=== PATIENT | male | born 1970 | race Asian ===

== ENCOUNTER 2021-05-04 14:22 | Inpatient (IN) | payer OTHER, SELFPAY ==
[2021-05-04] VITALS (7 sets, daily range): BP systolic 81–103; BP diastolic 31–68; PULSE 88–95; RESP 14–19; TEMP 36.1–36.5; O2SAT 97–100; BMI 32.8
--- NOTE | ~2021-05-04 | CT_ITS ---
EXAMINATION: CT chest abdomen pelvis wo con DATE: 05/04/2021 15:16 INDICATION: Hypotension. TECHNIQUE: Computed tomography (CT) of the chest, abdomen, and pelvis was performed without intraveno us contrast. Automated exposure control and iterative reconstruction technique were employed. The dos e-length product was 1367.60 mGy-cm. COMPARISON: None FINDINGS: CHEST CT: Mild subpleural atelectasis/scarring in the right lower lobe and mild discoid atelectasis at the ling linda. No pneumonia, pulmonary edema, pleural effusion or pneumothorax. Heart size is normal. Small valentin unt of atherosclerotic coronary artery calcification. No pericardial effusion. The blood pool is slig htly lower in attenuation than the myocardium which could be seen with anemia. Thoracic aorta is norm al in caliber. No periaortic stranding to suggest aortic injury. No pathologically enlarged thoracic lymphadenopathy. Mild bilateral gynecomastia. Mild thoracic spondylosis. ABDOMEN/PELVIS CT: 4.3 x 2.6 cm fluid attenuation lesion with lobular margins in the right hepatic lobe most consistent with a hepatic cyst or hemangioma. Gallbladder, spleen, pancreas and right adrenal gland are normal. 2.3 cm soft tissue density left adrenal nodule statistically most likely to represent an adenoma. Mil d scattered diverticulosis without adjacent inflammatory change to suggest diverticulitis. Small rand l and appendix are normal. Bladder is normal. No free intraperitoneal gas or fluid. No pathologically enlarged abdominal or pelvic lymphadenopathy. Abdominal aorta is normal in caliber with scattered sm all amount of atherosclerotic plaque but again with no periaortic stranding to suggest aortic injury. Moderate lower lumbar spondylosis. IMPRESSION: 1. No acute intrathoracic, abdominal or pelvic process.. Reviewed, dictated and finalized at location A.
--- NOTE | ~2021-05-04 | US_ITS ---
EXAMINATION: US renal BI DATE: 05/05/2021 11:19 INDICATION: Acute kidney injury TECHNIQUE: Multiple grayscale and Doppler ultrasound images of the kidneys were obtained. COMPARISON: 04/18/2011 FINDINGS: The right kidney measures 11.0 x 5.3 x 5.4 cm and contains cysts measuring up to 1.3 cm. Th e left kidney measures 11.8 x 6.1 x 4.8 cm and contains cysts measuring up to 1.9 cm. The kidneys dem onstrate normal parenchymal echogenicity. There is no hydronephrosis. The bladder is incompletely dis tended but unremarkable in appearance. IMPRESSION: 1. Cysts of the otherwise normal kidneys without hydronephrosis. Reviewed, dictated and finalized at location B.
--- NOTE | 2021-05-04 14:31 | ECG_ITS ---
Measurements Intervals [place] Rate: 84 P: 20 DC: 188 QRS: 46 QRSD: 102 T: 46 QT: 364 QTc: 432 Interpretive Statements SINUS RHYTHM BASELINE ARTIFACT- I, II, III, AVR, AVL, AVF NORMAL ECG Electronically Signed On 05-04-2021 15:16:32 CDT by Robert Sutherland D.O.
[2021-05-04 15:10] LABS: Estimated CRCL calculation 19 ml/min; Estimated Glomerular Filt Rate 12
[2021-05-04] MEDS: LACTATED RINGERS 1,000 ML 999 ML (15:15)
[2021-05-04 15:17] LABS: Basophils Percent Auto 0.4 % (0.2-1.2); Eosinophils Absolute Auto 0.1 K/mm3 (0-0.3); Eosinophils Percent Auto 0.8 % (0-4.4); Hemoglobin 9.7 g/dL (14.0-18.0); Immature Granulocyte Absolute 0.07 K/mm3 (0.00-0.031); Immature Granulocyte Percent A 0.6 % (0-0.5); Lymphocytes Absolute Auto 2.03 K/mm3 (0.9-3.2); Lymphocytes Percent Auto 18.7 % (18.3-44.2); Mean Corpuscular HGB Conc 34.6 g/dl (32-36); Mean Corpuscular Hemoglobin 32.9 pg (26-34); Mean Corpuscular Volume 94.9 fl (80-100); Mean Platelet Volume 10.8 fl (7.4-10.4); Monocytes Absolute Auto 0.9 K/mm3 (0.1-0.6); Monocytes Percent Auto 8.3 % (2.6-8.5); Neutrophils Absolute Auto 7.7 K/mm3 (1.3-6.7); Neutrophils Percent Auto 71.2 % (45.5-73.1); Platelet Count Result 325 k/mm3 (150-375); Red Blood Count 2.95 M/mm3 (4.6-6.20); White Blood Count 10.8 K/mm3 (4.5-10.0)
[2021-05-04 15:30] LABS: Magnesium 2.4 mg/dL (1.6-2.3)
[2021-05-04 15:34] LABS: D Dimer 0.31 ug/mL (<0.48)
[2021-05-04 15:42] LABS: Immature Reticulocyte Fraction 15.9 % (3.0-15.9); Reticulocyte Hemoglobin Conten 37.2 pg (28.2-35.7); Reticulocyte Percent 6.06 % (0.7-4.3); Reticulocytes Absolute 0.18 B/L (32.2-175.7)
[2021-05-04 15:42] LABS: NT Pro B Type Natriuretic Pept 211 pg/mL (5-100); Troponin I < 0.012 ng/mL (0.000-0.034)
[2021-05-04 15:50] LABS: Alanine Aminotransferase 109 U/L (4-50); Albumin Level 4.1 g/dL (3.5-5.1); Alkaline Phosphatase 59 U/L (38-126); Anion Gap 15 mmol/L (8-16); Aspartate Amino Transferase 62 U/L (17-59); Bilirubin,Total 0.5 mg/dL (0.2-1.3); Blood Urea Nitrogen 53 mg/dL (9-20); Carbon Dioxide 16 mmol/L (22-30); Chloride 98 mmol/L (98-107); Estimated CRCL calculation 21 ml/min; Estimated Glomerular Filt Rate 13; Glucose 546 mg/dL (65-110); Potassium 4.6 mmol/L (3.4-5.0); Sodium 129 mmol/L (137-145)
[2021-05-04] MEDS: LACTATED RINGERS 1,000 ML 999 ML IV CONT ×2 (16:01→16:40)
[2021-05-04 16:31] LABS: Device ROOM AIR; Fractional Inspired Oxygen 21 %; HCO3 VBG 16.4 mEq/l (24.0-30.0); PCO2 VBG 36.3 mmHg (42.0-48.0); PO2 VBG 34.4 mmHg (35.0-45.0); pH VBG 7.274 (7.300-7.400)
--- NOTE | 2021-05-04 16:34 | ED.RECABL ---
HPI - Recheck/Abnormal Lab/Rx General Chief Complaint: Recheck/Abnormal Lab/Rx Stated Complaint: low blood pressure Time Seen by Provider: 05/04/21 14:29 Source: patient Mode of arrival: ambulatory Limitations: no limitations History of Present Illness HPI narrative: 51-year-old male Referral low blood pressure Patient states he went to his new doctor's office for a follow-up appointment and blood pressure was low, 70/45 or so and he was sent to the ED Patient states that he had a history of CHF maybe 10 years ago and has been on stable medications ever since then which are all basically blood pressure medicines and diuretics, including at least Norvasc, lisinopril, furosemide, spironolactone He says for probably a week he has been lightheaded and dizzy when standing up but feels fine when he is lying down He has had some moderate upper back pain when in the sitting position aggravated by changes in position and relieved when supine He has not had a fever, no cough or shortness of breath, no chest pain otherwise, no abdominal pain no dark stools, no diarrhea, his p.o. intake is been adequate in his opinion Related Data Allergies Allergy/AdvReac Type Severity Reaction Status Date / Time No Known Allergies Allergy Unverified 01/01/15 09:20 Review of Systems Review of Systems: All systems reviewed & are unremarkable except as noted in HPI and below Constitutional: Constitutional: Reports no additional constitutional complaints, Denies chills, Reports fatigue, Denies fever(s), Denies headache(s) and Reports weakness Eyes: Eyes: Reports no additional eye complaints and Denies change in vision ENT: Denies headache(s) and Denies sore throat Cardiovascular: Cardiovascular: Denies chest pain and Denies dyspnea Respiratory: Respiratory: Denies cough and Denies dyspnea Gastrointestinal: Gastrointestinal: Denies abdominal pain, Denies diarrhea and Denies vomiting Comments: No melena Genitourinary: Genitourinary: Denies hematuria and Denies dysuria Musculoskeletal: Musculoskeletal: Denies deformity, Denies arthralgias, Denies joint swelling and Denies numbness Integumentary/Breasts: Skin/Breast: Denies rash and Denies wounds Neurologic: Reports dizziness, Denies headache(s), Denies focal weakness, Denies numbness and Reports weakness Psychiatric: Psychiatric: Reports no additional psychiatric complaints Endocrine: Endocrine: Reports no additional endocrine complaints and Reports as per HPI Hematologic/Lymphatic: Hematologic/Lymphatic: Reports no additional hematologic/lymphatic complaints Allergic/Immunologic: Allergic/Immunologic: Reports no additional allergic/immunologic complaints [facility] Past Medical History Medical History (Updated 05/04/21 @ 17:20 by Patric Ynacey MD) CHF (congestive heart failure) Family History Family History Father Patient's father is Hypertension Social History Social History Smoking status: Smoker, status unknown Alcohol intake: current Exam Const: General: cooperative, healthy appearing, no acute distress and alert Orientation/consciousness: patient oriented x3 (alert) HENMT: Head: normal to inspection, normocephalic and atraumatic Ears: external ears normal General nose exam: no epistaxis Eyes: EOM: EOMs intact bilaterally Other: Arguably has pale conjunctive Neck: Neck: normal visual inspection, supple and no JVD Chest: Chest palpation & inspection: no tenderness Resp: Effort & Inspection: normal respiratory effort and not labored Auscultation: clear to auscultation bilaterally, no rales, no rhonchi, no wheezes and other (BS =) Cardio: Rate: regular rate Rhythm: regular rhythm Heart sounds: no murmurs GI: GI Palp: Yes Soft to palpation and No Tenderness to palpation present (GI) Other: Soft, nontender, nondistended, normal bowel sounds, no guarding
[2021-05-04] MEDS: INSULIN HUMAN REGULAR (*BKC) 100 UNITS/ML IV PUSH (16:38)
[2021-05-04 16:50] LABS: Beta-Hydroxybutyrate/Acetoacetate 0.31 mmol/L (0.02-0.27)
[2021-05-04] MEDS: POTASSIUM CHLORIDE 20 MEQ PACKET (FOR LIQUID) PO (17:13)
[2021-05-04 17:31] LABS: Glucose Point of Care 368 mg/dl (65-105)
--- NOTE | 2021-05-04 19:13 | PM.IMHP ---
H&P: HPI History of Present Illness Date/Time: 05/04/21 19:13Clarke is a 51-year-old male patient who has a history of hypertension and congestive heart failure. The patient is known to have a global ejection fraction in the range of 30 percentile as listed on a consult report on 09/10/2011. the patient stated that his primary care doctor with Dr. jones and then had switched to Dr. guzman within retired. The patient stated that he was going back to Dr. zurita and was found to have a low blood pressure 70/45 and therefore was sent to the emergency room. The patient stated that he has not been taking any new medication. Nor the lost any weight or started a new exercise program. The patient stated that he has been feeling lightheaded and dizzy when he stands up but he is fine when he is lying down. The patient has no previous history of having diabetes. He does not recall any history of having any kidney disease however in the past he had a creatinine of 1.3. However today at 4.8. His blood sugar was 546. H&H is 9.7 and 28.0. Sodium 129. The patient has been on Lasix and spironolactone. 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 Patient has metabolic acidosis with anion gap of 15. Beta hydroxybutyrate acetoacetate was noted to be 0.31. The patient was given 2 bags of lactated Ringer's and his blood pressure was responsive to this. The patient was also given IV insulin. CT of the abdomen pelvis shows nothing acute intrathoracic, abdominal or pelvic process. The patient has not had any fever chills no shortness of breath. No chest pain. No abdominal pain. No diarrhea or decrease in oral intake. The patient is being admitted to inpatient services on the date of service of 05/04/2021. Chief Complaint: Dizziness Review of Systems Review of Systems: All systems reviewed & are unremarkable except as noted in HPI and below Constitutional: Constitutional: Reports as per HPI and Reports no additional constitutional complaints Eyes: Eyes: Reports as per HPI and Reports no additional eye complaints ENT: Reports system reviewed and no additional complaints, except as documented and Reports Normal hearing present Cardiovascular: Cardiovascular: Reports no additional cardiovascular complaints Respiratory: Respiratory: Reports no additional respiratory complaints and Reports no additional respiratory complaints Gastrointestinal: Gastrointestinal: Reports as per HPI and Reports no additional gastrointestinal complaints Musculoskeletal: Musculoskeletal: Reports no additional musculoskeletal complaints Integumentary/Breasts: Skin/Breast: Reports system reviewed and no additional complaints, except as docu and Reports as per HPI Neurologic: Reports system reviewed and no additional complaints, except as documented, Reports as per HPI and Reports Normal hearing present Psychiatric: Psychiatric: Reports no additional psychiatric complaints and Reports as per HPI Endocrine: Endocrine: Reports no additional endocrine complaints Hematologic/Lymphatic: Hematologic/Lymphatic: Reports no additional hematologic/lymphatic complaints Allergic/Immunologic: Allergic/Immunologic: Reports no additional allergic/immunologic complaints [facility] Past Medical History Medical History (Updated 05/04/21 @ 19:33 by Kalie Keys NP) Brain aneurysm CHF (congestive heart failure) Congestive heart failure DM2 (diabetes mellitus, type 2) Surgical History Surgical History (Updated 05/04/21 @ 19:33 by Kalie Keys NP) H/O brain surgery coil for brain aneurysm H/O cardiac catheterization S/P hernia repair Family History Family History (Updated 05/04/21 @ 19:36 by Kalie Keys NP) Father Patient's father is Hypertension Pancreatic cancer Mother Atrial fibrillation Hypertension Social History Social History (Updated 05/04/21 @ 19:40 by Kalie Keys NP) Social History: the patient l
--- NOTE | 2021-05-04 20:09 | ADMGEN ---
This patient, Gera Dumont, was admitted to IMU Room 200-01 at 1955. Patient/family oriented to hospital policies and general routines including ID bracelet, bed and alarms, visiting hours, pain management, procedures, bathroom and other care routines, personal items, smoking policy, room service/diet, and visiting hours. Information on how to activate the Rapid Response Team has been discussed. Patient/Family are encouraged to report perceived risks to care and to ask questions if they do not understand what they are told or what they should do.
[2021-05-04 20:39] LABS: Glucose Point of Care 294 mg/dl (65-105)
[2021-05-04] MEDS: INSULIN GLARGINE (*BKC) 100 UNITS/ML 16 UNITS SUB-Q (21:54)
[2021-05-04] MEDS: HEPARIN SODIUM 5,000 UNITS/ML VIAL 5000 UNITS SUB-Q (21:54)
[2021-05-04 23:00] LABS: Anion Gap 12 mmol/L (8-16); Blood Urea Nitrogen 46 mg/dL (9-20); Carbon Dioxide 17 mmol/L (22-30); Chloride 104 mmol/L (98-107); Estimated CRCL calculation 26 ml/min; Estimated Glomerular Filt Rate 17; Glucose 292 mg/dL (65-110); Potassium 4.4 mmol/L (3.4-5.0); Sodium 133 mmol/L (137-145)
[2021-05-05] VITALS (21 sets, daily range): BP systolic 58–97; BP diastolic 22–60; PULSE 84–113; RESP 16–22; TEMP 35.8–37.1; O2SAT 94–99
--- NOTE | 2021-05-05 | ECHO_ITS ---
Patient Info Name: Gera Menezes No Age: 51 years : 1970 Gender: Male Ht: 70 in Wt: 230 lbs BSA: 2.30 m2 HR: 89 bpm BP: 80 / 60 mmHg Technical Quality: Good Exam Date: 05/05/2021 8:37 AM Exam Location: [facility] Patient Status: Inpatient Admit Date: 05/04/2021 Staff Ordering Physician: Kalie Keys NP Cable Splicer Helper: Reinier Sharma RDCS, RT Attending Provider: Angelica Solomon MD Referring Physician: Massimo MORROW; Exam Type: CA echo doppler color flow Study Info Indications I50.9 - Heart failure, unspecified Complete two-dimensional, color flow and Doppler transthoracic echocardiogram is performed. Strain analysis performed. Summary 1. Complete two-dimensional, color flow and Doppler transthoracic echocardiogram is performed. 2. Global longitudinal strain is abnormal at -14.6%. 3. Left ventricular chamber dimension is normal. 4. Left ventricular systolic function is normal, estimated at 65-70%. 5. The left ventricular diastolic function is grade I diastolic dysfunction. 6. E/e' 11 is mildly elevated. 7. There is trace pulmonic regurgitation. Left Ventricle E/e' 11 is mildly elevated. Global longitudinal strain is abnormal at -14.6%. Left ventricular chamber dimension is normal. Left ventricular systolic function is normal, estimated at 65-70%. The left ventricular diastolic function is grade I diastolic dysfunction. Right Ventricle Right ventricular systolic function is normal. Right ventricular chamber dimension is normal. Left Atria Left atrial chamber dimension is normal. Right Atria Right atrial chamber dimension is normal. Aortic Valve The aortic valve is trileaflet. There is no aortic valve stenosis. There is no aortic valve regurgitation. Pulmonic Valve There is trace pulmonic regurgitation. Mitral Valve There is no mitral valve stenosis. There is no mitral valve regurgitation. Tricuspid Valve There is no tricuspid valve regurgitation. Pericardium/Pleural There is no pericardial effusion. Inferior Vena Cava Normal inferior vena cava with >50% collapse upon inspiration consistent with normal right atrial pressure, 5 mmHg. Aorta The aortic root size at the sinus of Valsalva is normal. Left Ventricular Outflow Tract Name Value Normal LVOT 2D LVOT Diameter 2.1 cm LVOT Doppler LVOT Peak Gradient 3 mmHg LVOT Mean Gradient 2 mmHg LVOT VTI 14 cm LVOT VTI/AV VTI Ratio 0.8 LVOT Stroke Volume 50 ml LVOT CO 4.3 l/min LVOT CI 1.9 l/min/m2 Mitral Valve Name Value Normal MV Doppler MV Decel [place] 221 cm/s2 MV PHT 74 ms
[2021-05-05 05:19] LABS: Basophils Percent Auto 0.4 % (0.2-1.2); Eosinophils Absolute Auto 0.1 K/mm3 (0-0.3); Hematocrit 25.5 % (42.0-52.0); Immature Granulocyte Absolute 0.05 K/mm3 (0.00-0.031); Immature Granulocyte Percent A 0.7 % (0-0.5); Lymphocytes Absolute Auto 1.88 K/mm3 (0.9-3.2); Lymphocytes Percent Auto 24.7 % (18.3-44.2); Mean Corpuscular HGB Conc 31.4 g/dl (32-36); Mean Platelet Volume 10.3 fl (7.4-10.4); Monocytes Absolute Auto 0.6 K/mm3 (0.1-0.6); Monocytes Percent Auto 8.3 % (2.6-8.5); Neutrophils Percent Auto 64.9 % (45.5-73.1); Nucleated Red Blood Cells Absolute Auto 0.1 K/mm3 (0.0-0.012); Nucleated Red Blood Cells Perc 0.7 % (0.0-0.2); Platelet Count Result 246 k/mm3 (150-375); White Blood Count 7.6 K/mm3 (4.5-10.0)
[2021-05-05 05:28] LABS: Hemoglobin A1C 11.8 % (<5.7)
[2021-05-05 05:36] LABS: Anion Gap 9 mmol/L (8-16); Blood Urea Nitrogen 44 mg/dL (9-20); Calcium 9.2 mg/dL (8.4-10.2); Carbon Dioxide 17 mmol/L (22-30); Chloride 107 mmol/L (98-107); Estimated CRCL calculation 28 ml/min; Estimated Glomerular Filt Rate 18; Glucose 228 mg/dL (65-110); Potassium 4.5 mmol/L (3.4-5.0); Sodium 133 mmol/L (137-145)
[2021-05-05 08:56] LABS: Glucose Point of Care 209 mg/dl (65-105)
[2021-05-05] MEDS: HEPARIN SODIUM 5,000 UNITS/ML VIAL 5000 UNITS SUB-Q ×2 (10:00→21:47)
[2021-05-05] MEDS: ROSUVASTATIN 10 MG TABLET 40 MG PO (10:00)
[2021-05-05] MEDS: INSULIN ASPART (*BKC) 100 UNITS/ML SUB-Q ×3 (10:01→17:06)
--- NOTE | 2021-05-05 11:01 | PM.CNNEP ---
Assessment and Plan Assessment and plan (1) JONES (acute kidney injury): Code(s): N17.9 - Acute kidney failure, unspecified Status: Acute Assessment and Plan: The patient has an elevated creatinine. Most likely this is predominantly acute kidney injury. He did have a visit with his PCP 2 years ago and his labs were normal at the time he says. The patient has new onset diabetes with a very high sugar. Most likely he had glucosuria and dehydration on that standpoint. Addition he was taking his blood pressure medications in spite of being dehydrated and his blood pressure was quite low. Most likely this is dehydration plus possibly ATN from the low blood pressure. The patient had a CT scan which shows that he does not have hydronephrosis. I looked on the images myself. Will check a CPK to rule out rhabdo but I doubt if this is present. Other causes such as interstitial nephritis and glomerulonephritis are unlikely in this setting. I will order an ultrasound of the kidneys to see their size and echogenicity. I will also order CPK urine electrolytes and follow his creatinine. I think he needs more fluids. Will restart some IV fluids. (2) DM2 (diabetes mellitus, type 2): Code(s): E11.9 - Type 2 diabetes mellitus without complications Status: Chronic Assessment and Plan: The patient is getting treatment for this. His sugar has come down (3) Hypotension: Code(s): I95.9 - Hypotension, unspecified Status: Acute Assessment and Plan: Blood pressure is still low. Continue holding antihypertensives and give more fluid (4) Anemia: Code(s): D64.9 - Anemia, unspecified Status: Acute Assessment and Plan: Hemoglobin is only 8. I wonder if this is been going on for longer than just 4 days. It is possible that he has anemia from his renal disease. Will also check irons and stool guaiacs. (5) Hypertension: Code(s): I10 - Essential (primary) hypertension Status: Acute Assessment and Plan: Antihypertensives on hold (6) History of cerebral aneurysm: Code(s): Z86.79 - Personal history of other diseases of the circulatory system Status: Acute Assessment and Plan: This was stented 20 years ago. History of Present Illness Reason for Consult Consult date: 05/05/21 Chief Complaint Chief complaint: Hypotension, JONES, Anemia, HHS History of Present Illness Narrative: Gera is a very pleasant 51-year-old gentleman who has hypertension for 20 years, cerebral aneurysm which was repaired 20 years ago, hyperlipidemia. The patient says he was feeling fine until about 4 5 days ago when he started getting lightheaded. He took his blood pressure at home and it was low so he made an appointment in his primary care doctor's office. He continued to take his antihypertensives even though the blood pressure was low. He went to the PCPs office yesterday in the blood pressure was only 70 so he was sent to the emergency room. He was evaluated in the ER and found to have a very high blood sugar and a high creatinine. He has no history of diabetes. He was felt to be dehydrated. He was given IV fluids last night. He was also given insulin and admitted. The patient feels better today. He is no longer dizzy but his blood pressure is still low. He denies any bloody urine, foamy urine, kidney stones, or bladder infections. He has no pain with urination. No fevers or chills. He has not been taking any [id number] medications. He does not smoke. He quit 4 years ago. He does not drink alcohol. Review of Systems Constitutional: Constitutional: Reports no additional constitutional complaints Eyes: Eyes: Reports no additional eye complaints ENT: Reports system reviewed and no additional complaints, except as documented Cardiovascular: Cardiovascular: Reports no additional cardiovascular complaints Respiratory: Respiratory: Reports no additio
--- NOTE | 2021-05-05 11:17 | PM.IMPN ---
Progress Note: A&P Assessment and Plan (1) DM2 (diabetes mellitus, type 2): Code(s): E11.9 - Type 2 diabetes mellitus without complications Status: Chronic Assessment and Plan: BG 209-->368 Accu-Cheks AC and HS Check A1c 11.8% inclusion paraeducator consulted Anion 15-->12-->9 Monitor (2) JONES (acute kidney injury): Code(s): N17.9 - Acute kidney failure, unspecified Status: Acute Assessment and Plan: Suspect 2/2 dehydration Improving Continue IVF Cr 3.6 from 5.3 on admission Renal ultrasound-->Cysts of the otherwise normal kidneys without hydronephrosis Nephrology has been consulted, recommendations apprecaited (3) Hypotension: Code(s): I95.9 - Hypotension, unspecified Status: Acute Assessment and Plan: 81/55 on admission S/p IVF, held last evening after improvement due to hx of CHF Hold antihypertensives 1 L IVF with improvement of SBP 78 Continue to IVF for now Monitor (4) Congestive heart failure: Code(s): I50.9 - Heart failure, unspecified Status: Acute Assessment and Plan: Echo-->65 %, grade I diastolic dysfunction No BB, or ACEI for now Continue statin Reports hx of HF, has not seen Cardiology many years Consider cardiology consult On IVF Strict I/O Daily weights (5) Hyperosmolar hyperglycemic state (HHS): Code(s): E11.00 - Type 2 diabetes mellitus with hyperosmolarity without nonketotic hyperglycemic-hyperosmolar coma (NKHHC); E11.65 - Type 2 diabetes mellitus with hyperglycemia Status: Acute Assessment and Plan: A1c 11.8 Sliding scale insulin, accuchecks Hypoglycemic protocol Monitor (6) Anemia: Code(s): D64.9 - Anemia, unspecified Status: Acute Assessment and Plan: Likely due to chronic disease Hgb 8 Iron panel reviewed, sat pending Monitor (7) Hypertension: Code(s): I10 - Essential (primary) hypertension Status: Acute Assessment and Plan: Hold antihypertensives Monitor Subjective Date/time seen: 05/05/21 11:17 Interval history: pt seen and evaluated; pt hypotensive with SBP 60s; pt asymptomatic; denies CP or SOB Review of Systems Review of Systems: All systems reviewed & are unremarkable except as noted in HPI and below Exam Const: General: no acute distress, alert and awake Orientation/consciousness: patient oriented x3 HENMT: Head: normocephalic and atraumatic Ears: hearing grossly normal bilaterally Face and sinus: face symmetric Mouth: Yes dry mucous membranes Eyes: EOM: EOMs intact bilaterally Neck: Neck: full ROM, trachea midline and no JVD Resp: Effort & Inspection: normal respiratory effort Auscultation: clear to auscultation bilaterally Cardio: Jugular venous distension: no JVD Rate: regular rate Rhythm: regular rhythm Heart sounds: S1 normal heart sound present and S2 normal heart sound present GI: Inspection: normal to inspection GI Palp: Yes Soft to palpation Percussion: Yes normal to percussion Auscultation: normal bowel sounds : General: Yes no CVA tenderness Back/Spine/Pelvis: Back: no CVA tenderness Skin: General skin exam: normal color Rashes: no rashes Neuro: General: patient oriented x3 and CN's II-XI intact bilaterally Cranial nerves: Yes Equal, round and reactive pupils present Speech: normal speech Psych: Appearance: grossly normal Affect: normal affect Judgement: Good judgement present (Psych) Objective Data Vital Signs Vital Signs: Vital Signs - 24 hr 05/04/21 14:25 05/04/21 15:31 05/04/21 15:55 Temperature 36.1 C L Pulse Rate 95 94 88 Respiratory Rate 14 18 18 Blood Pressure 81/55 L 86/47 L 98/52 L Pulse Oximetry 100 100 100 05/04/21 17:45 05/04/21 20:00 05/04/21 20:12 Temperature 36.5 C Pulse Rate 94 93 Respiratory Rate 18 19 Blood Pressure 103/68 102/55 L 87/31 L Pulse Oximetry 97 99 05/04/21 22:00 05/05/21 00:00 05/05/21 02:00 Temperature 36.6 C Pulse Rate 8
[2021-05-05 12:03] LABS: Creatine Kinase 1264 U/L (55-170)
[2021-05-05 12:04] LABS: Iron 115 ug/dL (49-181)
[2021-05-05] MEDS: SODIUM CHLORIDE 0.9% IV 1,000 ML 999 ML IV CONT ×2 (12:09→21:48)
[2021-05-05 12:13] LABS: Percent Iron Saturation 39 % (20-50)
[2021-05-05 12:26] LABS: Glucose Point of Care 250 mg/dl (65-105)
[2021-05-05 12:41] LABS: Lactic Acid Reflex 1.1 mmol/L (0.7-2.1)
[2021-05-05] MEDS: SODIUM CHLORIDE 0.9% IV 1,000 ML 100 ML IV CONT ×2 (13:17→17:05)
[2021-05-05 13:49] LABS: CRP < 0.5 mg/dL (<1.0)
[2021-05-05 14:55] LABS: Erythrocyte Sedimentation Rate 106 mm/hr (0-20)
[2021-05-05 16:36] LABS: Glucose Point of Care 214 mg/dl (65-105)
[2021-05-05 20:35] LABS: Glucose Point of Care 181 mg/dl (65-105)
--- NOTE | 2021-05-05 21:12 | PC.NURSE ---
Per Neeta Posada RN patient was 21% responsive on PLR NICOM performed 05/05/21.
[2021-05-05] MEDS: INSULIN GLARGINE (*BKC) 100 UNITS/ML 16 UNITS SUB-Q (21:47)
[2021-05-05 22:22] LABS: Creatinine Urine 63.8 mg/dL; Total Protein Urine Random 47 mg/dL; Ur Ttl Prot Creatinine Ratio 0.74 mg/mg (0-0.20)
[2021-05-05 22:37] LABS: Sodium Urine Random 61 meq/L
[2021-05-06] VITALS (19 sets, daily range): BP systolic 81–118; BP diastolic 46–68; PULSE 84–118; RESP 19–24; TEMP 35.7–37; O2SAT 92–98
[2021-05-06 05:40] LABS: Hematocrit 21.9 % (42.0-52.0); Hemoglobin 7.2 g/dL (14.0-18.0); Mean Corpuscular HGB Conc 32.9 g/dl (32-36); Mean Corpuscular Hemoglobin 32.3 pg (26-34); Mean Corpuscular Volume 98.2 fl (80-100); Mean Platelet Volume 10.5 fl (7.4-10.4); Platelet Count Result 224 k/mm3 (150-375); Red Blood Count 2.23 M/mm3 (4.6-6.20); Red Cell Distribution Width 13.1 % (11.5-14.5); White Blood Count 6.8 K/mm3 (4.5-10.0)
[2021-05-06 05:58] LABS: Anion Gap 6 mmol/L (8-16); Blood Urea Nitrogen 28 mg/dL (9-20); Calcium 8.4 mg/dL (8.4-10.2); Carbon Dioxide 17 mmol/L (22-30); Chloride 113 mmol/L (98-107); Estimated CRCL calculation 35 ml/min; Estimated Glomerular Filt Rate 24; Glucose 165 mg/dL (65-110); Potassium 3.8 mmol/L (3.4-5.0); Sodium 136 mmol/L (137-145)
[2021-05-06] MEDS: SODIUM CHLORIDE 0.9% IV 1,000 ML 100 ML IV CONT (06:30)
[2021-05-06 08:31] LABS: Glucose Point of Care 140 mg/dl (65-105)
[2021-05-06] MEDS: HEPARIN SODIUM 5,000 UNITS/ML VIAL 5000 UNITS SUB-Q ×2 (09:20→20:15)
[2021-05-06] MEDS: ROSUVASTATIN 10 MG TABLET 40 MG PO (09:21)
--- NOTE | 2021-05-06 10:04 | PM.IMPN ---
Progress Note: A&P Assessment and Plan (1) DM2 (diabetes mellitus, type 2): Code(s): E11.9 - Type 2 diabetes mellitus without complications Status: Chronic Assessment and Plan: BG 209-->368 Accu-Cheks AC and HS A1c 11.8% boil off machine operator cloth consulted Anion 15-->12-->9 Will need to initiated oral meds at d/c Monitor (2) JONES (acute kidney injury): Code(s): N17.9 - Acute kidney failure, unspecified Status: Acute Assessment and Plan: Suspect 2/2 dehydration Improving Continue IVF Cr 3.6-->2.8 today, from 5.3 on admission Renal ultrasound-->Cysts of the otherwise normal kidneys without hydronephrosis Nephrology has been consulted, recommendations appreciated (3) Hypotension: Code(s): I95.9 - Hypotension, unspecified Status: Acute Assessment and Plan: BP 80s/50s-110s/50s 81/55 on admission S/p IVF, held last evening after improvement due to hx of CHF Hold antihypertensives 1 L IVF with improvement of SBP 78 on 05/05 Bolus last evening 500 ml Continue to IVF for now Monitor (4) Congestive heart failure: Code(s): I50.9 - Heart failure, unspecified Status: Acute Assessment and Plan: Echo-->65 %, grade I diastolic dysfunction No BB, or ACEI for now Continue statin Reports hx of HF, has not seen Cardiology many years Consider cardiology consult On IVF Strict I/O Daily weights (5) Hyperosmolar hyperglycemic state (HHS): Code(s): E11.00 - Type 2 diabetes mellitus with hyperosmolarity without nonketotic hyperglycemic-hyperosmolar coma (NKHHC); E11.65 - Type 2 diabetes mellitus with hyperglycemia Status: Acute Assessment and Plan: A1c 11.8 Sliding scale insulin, accuchecks Hypoglycemic protocol Monitor (6) Anemia: Code(s): D64.9 - Anemia, unspecified Status: Acute Assessment and Plan: Likely due to chronic disease Hgb 8 Iron panel reviewed, sat pending Monitor (7) Hypertension: Code(s): I10 - Essential (primary) hypertension Status: Acute Assessment and Plan: Hold antihypertensives Monitor Subjective Date/time seen: 05/06/21 10:04 Interval history: pt seen and evaluated; pt hypotensive with SBP 60s; pt asymptomatic; denies CP or SOB Review of Systems Review of Systems: All systems reviewed & are unremarkable except as noted in HPI and below Exam Const: General: no acute distress, alert and awake Orientation/consciousness: patient oriented x3 HENMT: Head: normocephalic and atraumatic Ears: hearing grossly normal bilaterally Face and sinus: face symmetric Mouth: Yes dry mucous membranes Eyes: Pupils: Equal, round and reactive pupils present EOM: EOMs intact bilaterally Neck: Neck: full ROM, trachea midline and no JVD Resp: Effort & Inspection: normal respiratory effort Auscultation: clear to auscultation bilaterally Cardio: Jugular venous distension: no JVD Rate: regular rate Rhythm: regular rhythm Heart sounds: S1 normal heart sound present and S2 normal heart sound present GI: Inspection: normal to inspection Auscultation: normal bowel sounds : General: Yes no CVA tenderness Back/Spine/Pelvis: Back: no CVA tenderness Skin: General skin exam: normal color Rashes: no rashes Neuro: General: patient oriented x3 and CN's II-XI intact bilaterally Cranial nerves: Yes Equal, round and reactive pupils present Speech: normal speech Psych: Appearance: grossly normal Affect: normal affect Judgement: Good judgement present (Psych) Objective Data Vital Signs Vital Signs: Vital Signs - 24 hr 05/05/21 12:00 05/05/21 12:32 05/05/21 12:33 Temperature 36.7 C Pulse Rate 87 96 Respiratory Rate 20 Blood Pressure 68/39 L 58/22 L Pulse Oximetry 99 05/05/21 13:20 05/05/21 14:00 05/05/21 16:00 Temperature Pulse Rate 88 96 Respiratory Rate Blood Pressure 82/56 L Pulse Oximetry 05/05/21 16:24 05/05/21 18:00 05/05/21 19:47
[2021-05-06 12:08] LABS: Glucose Point of Care 177 mg/dl (65-105)
[2021-05-06] MEDS: INSULIN ASPART (*BKC) 100 UNITS/ML SUB-Q (17:33)
[2021-05-06] MEDS: SODIUM CHLORIDE 0.9% IV 1,000 ML 75 ML IV CONT (17:34)
[2021-05-06 17:44] LABS: Glucose Point of Care 224 mg/dl (65-105)
[2021-05-06] MEDS: INSULIN GLARGINE (*BKC) 100 UNITS/ML 16 UNITS SUB-Q (20:15)
[2021-05-06 21:46] LABS: Glucose Point of Care 255 mg/dl (65-105)
[2021-05-07] VITALS (18 sets, daily range): BP systolic 89–102; BP diastolic 50–63; PULSE 83–121; RESP 20–22; TEMP 36.3–37.2; O2SAT 95–97
--- NOTE | 2021-05-07 01:04 | PC.NURSE ---
Daylight Savings Time For Daylight Savings Time Ending in the Fall - Clocks are moved back. For Daylight Savings Time Beginning in the Spring - Clocks are moved ahead. For [facility], the time of change occurs at 0200 hrs. Time is taken from the civil process server. This entry on the patient's chart recognizes the change in time reflected during documentation. Example: 2 entries for vital signs may be charted for 0200 hrs.
[2021-05-07] MEDS: SODIUM CHLORIDE 0.9% IV 1,000 ML 75 ML IV CONT (05:42)
[2021-05-07 06:45] LABS: Anion Gap 7 mmol/L (8-16); Blood Urea Nitrogen 19 mg/dL (9-20); Calcium 8.5 mg/dL (8.4-10.2); Carbon Dioxide 18 mmol/L (22-30); Chloride 112 mmol/L (98-107); Estimated CRCL calculation 49 ml/min; Estimated Glomerular Filt Rate 36; Glucose 179 mg/dL (65-110); Potassium 3.8 mmol/L (3.4-5.0); Sodium 137 mmol/L (137-145)
[2021-05-07 08:36] LABS: Hematocrit 22.5 % (42.0-52.0); Hemoglobin 7.6 g/dL (14.0-18.0); Mean Corpuscular HGB Conc 33.8 g/dl (32-36); Mean Corpuscular Hemoglobin 32.3 pg (26-34); Mean Corpuscular Volume 95.7 fl (80-100); Mean Platelet Volume 10.7 fl (7.4-10.4); Platelet Count Result 237 k/mm3 (150-375); Red Blood Count 2.35 M/mm3 (4.6-6.20); Red Cell Distribution Width 12.9 % (11.5-14.5); White Blood Count 6.5 K/mm3 (4.5-10.0)
[2021-05-07 08:55] LABS: Glucose Point of Care 148 mg/dl (65-105)
--- NOTE | 2021-05-07 09:08 | PM.IMPN ---
Progress Note: A&P Assessment and Plan (1) DM2 (diabetes mellitus, type 2): Code(s): E11.9 - Type 2 diabetes mellitus without complications Status: Chronic Assessment and Plan: BG 140s-250Ss last 24 hrs8 Accu-Cheks AC and HS A1c 11.8% print decorator consulted Anion 15-->12-->9 Will need to initiated oral meds at d/c Monitor (2) JONES (acute kidney injury): Code(s): N17.9 - Acute kidney failure, unspecified Status: Acute Assessment and Plan: Suspect 2/2 dehydration Improving Continue IVF Cr 3.6-->2.8-->2 today, from 5.3 on admission Renal ultrasound-->Cysts of the otherwise normal kidneys without hydronephrosis Nephrology has been consulted, recommendations appreciated (3) Hypotension: Code(s): I95.9 - Hypotension, unspecified Status: Acute Assessment and Plan: BP 90s/60s this a.m. with IVF on hold 81/55 on admission S/p IVF, held last evening after improvement due to hx of CHF Hold antihypertensives 1 L IVF with improvement of SBP 78 on 05/05 Bolus last evening 500 ml Hold IVF for now Add midodrine 2.5 mg TID Monitor (4) Congestive heart failure: Code(s): I50.9 - Heart failure, unspecified Status: Acute Assessment and Plan: Echo-->65 %, grade I diastolic dysfunction No BB, or ACEI for now Continue statin Reports hx of HF, has not seen Cardiology many years Consider cardiology consult On IVF Strict I/O Daily weights (5) Hyperosmolar hyperglycemic state (HHS): Code(s): E11.00 - Type 2 diabetes mellitus with hyperosmolarity without nonketotic hyperglycemic-hyperosmolar coma (NKHHC); E11.65 - Type 2 diabetes mellitus with hyperglycemia Status: Acute Assessment and Plan: A1c 11.8 Sliding scale insulin, accuchecks Hypoglycemic protocol Monitor (6) Anemia: Code(s): D64.9 - Anemia, unspecified Status: Acute Assessment and Plan: Likely due to chronic disease Hgb 8-->7.2-->7.6 Iron panel reviewed, sat pending Monitor (7) Hypertension: Code(s): I10 - Essential (primary) hypertension Status: Acute Assessment and Plan: Hold antihypertensives Monitor Subjective Date/time seen: 05/07/21 09:08 Interval history: pt seen and evaluated; pt hypotensive with SBP 60s; pt asymptomatic; denies CP or SOB Review of Systems Review of Systems: All systems reviewed & are unremarkable except as noted in HPI and below Exam Const: General: no acute distress, alert and awake Orientation/consciousness: patient oriented x3 HENMT: Head: normocephalic and atraumatic Ears: hearing grossly normal bilaterally Face and sinus: face symmetric Mouth: Yes dry mucous membranes Eyes: EOM: EOMs intact bilaterally Neck: Neck: full ROM, trachea midline and no JVD Resp: Effort & Inspection: normal respiratory effort Auscultation: clear to auscultation bilaterally Cardio: Jugular venous distension: no JVD Rate: regular rate Rhythm: regular rhythm Heart sounds: S1 normal heart sound present and S2 normal heart sound present GI: Inspection: normal to inspection Auscultation: normal bowel sounds : General: Yes no CVA tenderness Skin: General skin exam: normal color Rashes: no rashes Neuro: General: patient oriented x3 and CN's II-XI intact bilaterally Cranial nerves: Yes Equal, round and reactive pupils present Speech: normal speech Psych: Appearance: grossly normal Affect: normal affect Judgement: Good judgement present (Psych) Objective Data Vital Signs Vital Signs: Vital Signs - 24 hr 05/06/21 11:53 05/06/21 12:00 05/06/21 12:18 Temperature 35.7 C L Pulse Rate 93 94 98 Respiratory Rate 22 H Blood Pressure 85/57 L Pulse Oximetry 94 94 05/06/21 14:00 05/06/21 15:49 05/06/21 16:00 Temperature 35.7 C L Pulse Rate 100 106 H 108 H Respiratory Rate 20 Blood Pressure 102/61 Pulse Oximetry 92 94 05/06/21 18:00 05/06/21 19:54 05/06/21 19:57 Te
[2021-05-07] MEDS: HEPARIN SODIUM 5,000 UNITS/ML VIAL 5000 UNITS SUB-Q ×2 (09:12→20:50)
[2021-05-07] MEDS: ROSUVASTATIN 10 MG TABLET 40 MG PO (09:12)
--- NOTE | 2021-05-07 11:14 | PM.PNNEP ---
Progress Note: A&P Assessment and Plan (1) JONES (acute kidney injury): Code(s): N17.9 - Acute kidney failure, unspecified Status: Acute Assessment and Plan: The patient has an elevated creatinine. Most likely this is predominantly acute kidney injury. Renal ultrasound is okay. Urine protein is 740. Urine electrolytes are non pre read CPK is mildly high. Not high enough to cause kidney problems. Will repeat this tomorrow to check on trends. He did have a visit with his PCP 2 years ago and his labs were normal at the time he says. Most likely this is predominantly acute kidney injury. Hopefully the creatinine will return to normal. His urine protein is a little elevated but this can happen during episodes with such high sugar. This can be repeated as an outpatient. (2) DM2 (diabetes mellitus, type 2): Code(s): E11.9 - Type 2 diabetes mellitus without complications Status: Chronic Assessment and Plan: The patient is getting treatment for this. His sugar has come down and is now below 200 (3) Hypotension: Code(s): I95.9 - Hypotension, unspecified Status: Acute Assessment and Plan: Blood pressure is still low. Continue holding antihypertensives and give more fluid (4) Anemia: Code(s): D64.9 - Anemia, unspecified Status: Acute Assessment and Plan: Hemoglobin is only 8. I wonder if this is been going on for longer than just 4 days. It is possible that he has anemia from his renal disease. Will also check irons and stool guaiacs. (5) Hypertension: Code(s): I10 - Essential (primary) hypertension Status: Acute Assessment and Plan: Antihypertensives on hold Blood pressure still a bit soft. Continue IV fluids (6) History of cerebral aneurysm: Code(s): Z86.79 - Personal history of other diseases of the circulatory system Status: Acute Assessment and Plan: This was stented 20 years ago. Subjective Date/time seen: 05/07/21 11:14 Interval history: Patient feels good. No more dizziness. Sugars are improved. Review of Systems Cardiovascular: Cardiovascular: Reports no additional cardiovascular complaints Respiratory: Respiratory: Reports no additional respiratory complaints Gastrointestinal: Gastrointestinal: Reports no additional gastrointestinal complaints Genitourinary: Genitourinary: Reports no additional male genitourinary complaints Exam Narrative: WDWN in NAD skin no rash head ncat lungs clear cor reg no rub abd BS+ nontender and soft ext no edema. Objective Data Vital Signs Vital Signs: Vital Signs - 24 hr 05/06/21 12:18 05/06/21 14:00 05/06/21 15:49 Temperature 35.7 C L 35.7 C L Pulse Rate 98 100 106 H Respiratory Rate 22 H 20 Blood Pressure 85/57 L 102/61 Pulse Oximetry 94 92 05/06/21 16:00 05/06/21 18:00 05/06/21 19:54 Temperature 36.8 C Pulse Rate 108 H 106 H 105 H Respiratory Rate 20 Blood Pressure 88/50 L Pulse Oximetry 94 94 05/06/21 19:57 05/06/21 19:59 05/06/21 20:00 Temperature Pulse Rate 118 H Respiratory Rate Blood Pressure 81/58 L 83/56 L Pulse Oximetry 05/06/21 22:00 05/07/21 00:00 05/07/21 01:45 CHICKEN SEXER Temperature 36.7 C Pulse Rate 92 116 H 85 Respiratory Rate 20 Blood Pressure 102/63 Pulse Oximetry 96 05/07/21 04:00 05/07/21 06:00 05/07/21 08:00 Temperature 36.8 C Pulse Rate 89 97 83 Respiratory Rate 22 H 22 H Blood Pressure 102/50 L Pulse Oximetry 95 95 05/07/21 09:25 05/07/21 09:26 05/07/21 09:27 Temperature 37.2 C Pulse Rate 91 110 H 121 H Respiratory Rate 20 Blood Pressure 90/61 L 102/60 93/58 L Pulse Oximetry 95 Intake/Output Intake/Output: Intake & Output 05/04/21 05/05/21 05/06/21 05/07/21 23:59 23:59 23:59 22:59 Intake Total 3000 4990 3690 2340 Output Total 1550 900 700 Balance 3000 3440 0740 1640 Meds/Results Medications: Active Medications
[2021-05-07 12:33] LABS: Glucose Point of Care 201 mg/dl (65-105)
[2021-05-07] MEDS: INSULIN ASPART (*BKC) 100 UNITS/ML SUB-Q ×2 (13:19→17:58)
[2021-05-07] MEDS: MIDODRINE HCL 2.5 MG TABLET PO (16:51)
[2021-05-07 17:44] LABS: Glucose Point of Care 279 mg/dl (65-105)
[2021-05-07 20:01] LABS: Glucose Point of Care 251 mg/dl (65-105)
[2021-05-07] MEDS: INSULIN GLARGINE (*BKC) 100 UNITS/ML 16 UNITS SUB-Q (20:50)
[2021-05-08] VITALS (19 sets, daily range): BP systolic 92–113; BP diastolic 59–81; PULSE 82–116; RESP 20–22; TEMP 35.9–36.7; O2SAT 96–100; BMI 34.7
[2021-05-08 04:53] LABS: Hematocrit 21.3 % (42.0-52.0); Hemoglobin 7.1 g/dL (14.0-18.0); Mean Corpuscular HGB Conc 33.3 g/dl (32-36); Mean Corpuscular Volume 95.9 fl (80-100); Mean Platelet Volume 10.1 fl (7.4-10.4); Platelet Count Result 210 k/mm3 (150-375); Red Blood Count 2.22 M/mm3 (4.6-6.20); Red Cell Distribution Width 12.6 % (11.5-14.5); White Blood Count 6.5 K/mm3 (4.5-10.0)
[2021-05-08 05:13] LABS: Albumin Level 3.1 g/dL (3.5-5.1); Anion Gap 6 mmol/L (8-16); Blood Urea Nitrogen 13 mg/dL (9-20); Calcium 8.5 mg/dL (8.4-10.2); Carbon Dioxide 20 mmol/L (22-30); Chloride 109 mmol/L (98-107); Creatine Kinase 553 U/L (55-170); Estimated CRCL calculation 56 ml/min; Estimated Glomerular Filt Rate 40; Glucose 192 mg/dL (65-110); Phosphorus 2.9 mg/dL (2.5-4.5); Potassium 3.5 mmol/L (3.4-5.0); Sodium 135 mmol/L (137-145)
[2021-05-08 07:21] LABS: Glucose Point of Care 176 mg/dl (65-105)
[2021-05-08] MEDS: ROSUVASTATIN 10 MG TABLET 40 MG PO (08:33)
[2021-05-08] MEDS: HEPARIN SODIUM 5,000 UNITS/ML VIAL 5000 UNITS SUB-Q ×2 (08:33→21:57)
[2021-05-08] MEDS: MIDODRINE HCL 2.5 MG TABLET PO ×3 (08:33→17:04)
[2021-05-08] MEDS: INSULIN ASPART (*BKC) 100 UNITS/ML SUB-Q ×3 (12:09→17:04)
[2021-05-08 12:17] LABS: Glucose Point of Care 237 mg/dl (65-105)
[2021-05-08 13:41] LABS: Hematocrit 25.1 % (42.0-52.0); Hemoglobin 8.5 g/dL (14.0-18.0)
[2021-05-08 16:34] LABS: Glucose Point of Care 266 mg/dl (65-105)
--- NOTE | 2021-05-08 16:47 | P.PNIM_ITS ---
Progress Note: A&P Assessment and Plan (1) DM2 (diabetes mellitus, type 2): Code(s): E11.9 - Type 2 diabetes mellitus without complications Status: Chronic Assessment and Plan: Poorly controlled. A1c is 11.8%. Blood sugars ranging 170s-260s * Continue with Accu-Cheks, moderate dose sliding scale insulin, hypoglycemic protocol * Lantus 16 units q.h.s. * Add NovoLog 5 units with meals * Spoke with informatics educator. Appreciate consultation * He will need to be discharged with insulin. He is limited on oral hypoglycemics given his JONES (2) JONES (acute kidney injury): Code(s): N17.9 - Acute kidney failure, unspecified Status: Acute Assessment and Plan: Creatinine elevated at 5.3 on presentation * [place] to be secondary to dehydration and hypoperfusion from hypotension * Renal ultrasound showed normal kidneys without hydronephrosis. cyst--- * Creatinine kinase mildly elevated and has improved to 550 today * Continue with gentle IV fluid rehydration * Creatinine has improved to 1.8 today * Appreciate nephrology consultation (3) Hypotension: Code(s): I95.9 - Hypotension, unspecified Status: Acute Assessment and Plan: Blood pressure was 81/55 on presentation and declined to 58/22. May be related to significant dehydration in the setting of multiple antihypertensive agents * Blood pressure improving slowly but still low. Last BP 94/59 * Continue with IV fluids * All antihypertensive agents are on hold including amlodipine, carvedilol, furosemide, lisinopril, and spironolactone * Continue midodrine 2.5 mg TID * Monitor BP trends closely (4) Congestive heart failure: Code(s): I50.9 - Heart failure, unspecified Status: Acute Assessment and Plan: Echo shows EF of 65% with grade 1 diastolic dysfunction * Medications on hold as above * Continue with gentle IV fluids; monitoring volume status closely to avoid over-hydration * Monitor intake and output and daily weights * Heart healthy diet (5) Anemia: Code(s): D64.9 - Anemia, unspecified Status: Acute Assessment and Plan: May be related to kidney disease. No evidence of bleeding and vital signs are stable. * Monitor H&H closely. Repeat CBC tomorrow * Iron panel reviewed, ferritin elevated with normal iron stores * Check B12 and folate * Check stool for occult blood Additional Plan The patient is hemodynamically stable and will be downgraded to medical/surgical floor Subjective Date/time seen: 05/08/21 16:47 Interval history: Date of service: 05/08/2021 Gera Dumont is a 51-year-old male with a history of type 2 diabetes mellitus, CHF, and brain aneurysm s/p coil repair who is seen in follow-up for acute kidney injury and hypotension. He is feeling well today. He offers no complaints. Denies nausea, vomiting, fever, chills, dizziness, lightheadedness. No shortness breath, cough, or chest pain. Denies orthopnea. Denies swelling of his extremities. He has been able to get up and ambulate independently. He is eating well. Denies urinary symptoms. Reports regular bowel movements and denies diarrhea. He is sleeping well. Denies any bleeding including melena, hematochezia, hematemesis, hematuria, epistaxis. He is eager for discharge home. Review of Systems Review of Systems: All systems reviewed & are unremarkable except as noted in HPI and below Exam Narrative: Mr. Dumont is an obese, well-appearing 51-year-old male who is lyi
--- NOTE | 2021-05-08 16:47 | PM.IMPN ---
Progress Note: A&P Assessment and Plan (1) DM2 (diabetes mellitus, type 2): Code(s): E11.9 - Type 2 diabetes mellitus without complications Status: Chronic Assessment and Plan: Poorly controlled. A1c is 11.8%. Blood sugars ranging 170s-260s Continue with Accu-Cheks, moderate dose sliding scale insulin, hypoglycemic protocol Lantus 16 units q.h.s. Add NovoLog 5 units with meals Spoke with supervisor electron tube processing. Appreciate consultation He will need to be discharged with insulin. He is limited on oral hypoglycemics given his JONES (2) JONES (acute kidney injury): Code(s): N17.9 - Acute kidney failure, unspecified Status: Acute Assessment and Plan: Creatinine elevated at 5.3 on presentation [place] to be secondary to dehydration and hypoperfusion from hypotension Renal ultrasound showed normal kidneys without hydronephrosis. cyst--- Creatinine kinase mildly elevated and has improved to 550 today Continue with gentle IV fluid rehydration Creatinine has improved to 1.8 today Appreciate nephrology consultation (3) Hypotension: Code(s): I95.9 - Hypotension, unspecified Status: Acute Assessment and Plan: Blood pressure was 81/55 on presentation and declined to 58/22. May be related to significant dehydration in the setting of multiple antihypertensive agents Blood pressure improving slowly but still low. Last BP 94/59 Continue with IV fluids All antihypertensive agents are on hold including amlodipine, carvedilol, furosemide, lisinopril, and spironolactone Continue midodrine 2.5 mg TID Monitor BP trends closely (4) Congestive heart failure: Code(s): I50.9 - Heart failure, unspecified Status: Acute Assessment and Plan: Echo shows EF of 65% with grade 1 diastolic dysfunction Medications on hold as above Continue with gentle IV fluids; monitoring volume status closely to avoid over-hydration Monitor intake and output and daily weights Heart healthy diet (5) Anemia: Code(s): D64.9 - Anemia, unspecified Status: Acute Assessment and Plan: May be related to kidney disease. No evidence of bleeding and vital signs are stable. Monitor H&H closely. Repeat CBC tomorrow Iron panel reviewed, ferritin elevated with normal iron stores Check B12 and folate Check stool for occult blood Additional Plan The patient is hemodynamically stable and will be downgraded to medical/surgical floor Subjective Date/time seen: 05/08/21 16:47 Interval history: Date of service: 05/08/2021 Gera Dumnot is a 51-year-old male with a history of type 2 diabetes mellitus, CHF, and brain aneurysm s/p coil repair who is seen in follow-up for acute kidney injury and hypotension. He is feeling well today. He offers no complaints. Denies nausea, vomiting, fever, chills, dizziness, lightheadedness. No shortness breath, cough, or chest pain. Denies orthopnea. Denies swelling of his extremities. He has been able to get up and ambulate independently. He is eating well. Denies urinary symptoms. Reports regular bowel movements and denies diarrhea. He is sleeping well. Denies any bleeding including melena, hematochezia, hematemesis, hematuria, epistaxis. He is eager for discharge home. Review of Systems Review of Systems: All systems reviewed & are unremarkable except as noted in HPI and below Exam Narrative: Mr. Dumont is an obese, well-appearing 51-year-old male who is lying supine in bed. He appears comfortable and is in NARD. Neuro: awake, alert and oriented x4, speech clear, no focal neuro deficits noted HEENMT: normocephalic, atraumatic, EOMI, sclerae anicteric, moist oral mucosa Neck: supple, no lymphadenopathy Respiratory: clear to auscultation bilaterally, nonlabored breathing Cardio: regular rate, regular rhythm with S1-S2 Abdomen: nondistended, normoactive bowel sounds, soft, nontender to palpation Extremities: no jaycee
--- NOTE | 2021-05-08 16:50 | PM.PNNEP ---
Progress Note: A&P Assessment and Plan (1) JONES (acute kidney injury): Code(s): N17.9 - Acute kidney failure, unspecified Status: Acute Assessment and Plan: patient not aware of any previous history of kidney disease appears to volume depleted/dehydration mediated given improvement with IVFs evaluation to date: - renal ultrasound normal - urine electrolytes non-prenal - mild proteinuria (740mg) - mildly elevated CPK creatinine continues to improve -- unclear where it will level off too... follow repeat labs and UOP (2) DM2 (diabetes mellitus, type 2): Code(s): E11.9 - Type 2 diabetes mellitus without complications Status: Chronic Assessment and Plan: getting treatment for this follow trend of sugars (3) Hypotension: Code(s): I95.9 - Hypotension, unspecified Status: Acute Assessment and Plan: blood pressure is still lowish holding antihypertensives on IVFs (4) Anemia: Code(s): D64.9 - Anemia, unspecified Status: Acute Assessment and Plan: low but stable related to current kidney issues? follow trend of H/H Will continue to follow. Subjective Date/time seen: 05/08/21 16:50 Chart reviewed -- assuming care from Dr. Calderon; he appears to be feeling quite well today without any issues overnight or earlier this AM; eating and drinking okay; no apparent distress voiced at the time of my visit. Exam Narrative: General: WD/WN male in NAD Heart: normal S1 and S2; no rub Lungs: clear to auscultation Abdomen: soft, nontender, nondistended, positive bowel sounds Extremities: no cyanosis or clubbing; no edema Skin: warm and dry Objective Data Vital Signs Vital Signs: Vital Signs Temp Pulse Resp BP Pulse Ox 05/08/21 16:48 36.5 C 93 20 94/59 L 97 05/08/21 16:00 91 20 97 05/08/21 14:00 112 H 05/08/21 12:17 36.7 C 96 20 100/66 96 05/08/21 12:00 102 H 20 97 05/08/21 10:00 97 05/08/21 08:00 97 20 97 05/08/21 07:31 36.1 C L 85 20 97/72 L 97 05/08/21 07:30 107/69 05/08/21 07:29 113/66 05/08/21 06:00 89 05/08/21 04:00 35.9 C L 86 22 H 92/59 L 98 05/08/21 02:00 91 05/08/21 00:00 100 05/07/21 23:36 36.3 C L 88 22 H 89/61 L 96 05/07/21 22:00 90 05/07/21 20:00 36.3 C L 96 22 H 97/54 L 97 Intake/Output Intake/Output: Intake & Output 05/06/21 05/07/21 05/07/21 05/08/21 00:59 00:59 23:59 23:59 Intake Total 1460 Output Total 1800 Balance -340 Meds/Results Medications: Active Medications Generic Name Dose Route Start Last Admin Trade Name Freq PRN Reason Stop Dose Admin Acetaminophen 650 mg 05/04/21 17:21 Acetaminophen 325 Mg Tablet PO Q4H PRN Mild Pain (1-3) or Fever Dextrose 12.5 gm 05/04/21 19:54 Dextrose 50% 25 Gm/50 Ml Syringe IV PUSH PRN PRN Hypoglycemia Protocol Glucagon 1 mg 05/04/21 19:54 Glucagon For Inj 1 Mg Vial IM PRN PRN Hypoglycemia Protocol Glucose 15 gm 05/04/21 19:54 Glucose Oral Gel 15 Gm Of Glucse In 37.5 Gm Tube PO PRN PRN Hypoglycemia Protocol Heparin Sodium (Porcine) 5,000 units 05/04/21 21:00 05/08/21 08:33 Heparin Sodium 5,000 Units/Ml Vial SUB-Q 5,000 units Q12HR MILLIE Administration Dextrose 1,000 mls @ 100 mls/hr 05/04/21 19:54 Dextrose 5% 1,000 Ml IVPB PRN PRN Hypoglycemia Protocol Sodium Chloride 1,000 mls @ 75 mls/hr 05/05/21 11:15 05/07/21 09:16 Normal Saline Iv IV CONT 0 mls/hr .[id number] MILLIE Infusion Insulin Aspart 5 units 05/08/21 17:00 05/08/21 17:04 Insulin Aspart (*Bkc) 100 Units/Ml 0.05 units/kg (5 units) 5 units SUB-Q Administration TIDWM MILLIE Insulin Aspart 3 - 6 units 05/08/21 17:00 05/08/21 17:04 Insulin Aspart (*Bkc) 100 Units/Ml SUB-Q 4 units TIDWM
[2021-05-08 19:56] LABS: Glucose Point of Care 256 mg/dl (65-105)
[2021-05-08] MEDS: INSULIN GLARGINE (*BKC) 100 UNITS/ML 16 UNITS SUB-Q (21:52)
[2021-05-09] VITALS (10 sets, daily range): BP systolic 91–117; BP diastolic 53–73; PULSE 74–108; RESP 18–20; TEMP 36.1–36.5; O2SAT 97–98
--- NOTE | 2021-05-09 02:49 | PC.NURSE ---
This patient, Gera Dumont, was transferred to [room 349] on 05/09/21 at 0250. Personal belongings sent with patient. Report given to [ DIANE Guerra]. Appropriate documentation sent with patient.
--- NOTE | 2021-05-09 02:59 | PC.NURSE ---
This patient, Gera Dumont, was received from [[facility] ] on 05/09/21 at 0250. Patient/family oriented to unit policies and routines
[2021-05-09 05:44] LABS: Basophils Percent Auto 0.3 % (0.2-1.2); Eosinophils Absolute Auto 0.1 K/mm3 (0-0.3); Eosinophils Percent Auto 0.8 % (0-4.4); Hematocrit 22.5 % (42.0-52.0); Hemoglobin 7.5 g/dL (14.0-18.0); Immature Granulocyte Absolute 0.08 K/mm3 (0.00-0.031); Immature Granulocyte Percent A 1.1 % (0-0.5); Lymphocytes Absolute Auto 1.64 K/mm3 (0.9-3.2); Lymphocytes Percent Auto 22.8 % (18.3-44.2); Mean Corpuscular HGB Conc 33.3 g/dl (32-36); Mean Corpuscular Hemoglobin 31.8 pg (26-34); Mean Corpuscular Volume 95.3 fl (80-100); Mean Platelet Volume 9.6 fl (7.4-10.4); Monocytes Absolute Auto 0.6 K/mm3 (0.1-0.6); Monocytes Percent Auto 7.8 % (2.6-8.5); Neutrophils Absolute Auto 4.8 K/mm3 (1.3-6.7); Neutrophils Percent Auto 67.2 % (45.5-73.1); Platelet Count Result 235 k/mm3 (150-375); Red Blood Count 2.36 M/mm3 (4.6-6.20); Red Cell Distribution Width 12.8 % (11.5-14.5); White Blood Count 7.2 K/mm3 (4.5-10.0)
[2021-05-09 06:12] LABS: Anion Gap 11 mmol/L (8-16); Blood Urea Nitrogen 12 mg/dL (9-20); Calcium 8.4 mg/dL (8.4-10.2); Carbon Dioxide 17 mmol/L (22-30); Chloride 108 mmol/L (98-107); Estimated CRCL calculation 63 ml/min; Estimated Glomerular Filt Rate 46; Glucose 192 mg/dL (65-110); Potassium 3.7 mmol/L (3.4-5.0); Sodium 136 mmol/L (137-145)
[2021-05-09 07:10] LABS: Folic Acid 7.3 ng/mL (2.76->20)
[2021-05-09] MEDS: HEPARIN SODIUM 5,000 UNITS/ML VIAL 5000 UNITS SUB-Q (09:35)
[2021-05-09] MEDS: MIDODRINE HCL 2.5 MG TABLET PO ×2 (09:36→13:28)
[2021-05-09] MEDS: INSULIN ASPART (*BKC) 100 UNITS/ML SUB-Q ×3 (09:36→13:27)
[2021-05-09] MEDS: ROSUVASTATIN 10 MG TABLET 40 MG PO (09:36)
--- NOTE | 2021-05-09 10:05 | PM.PNNEP ---
Progress Note: A&P Assessment and Plan (1) JONES (acute kidney injury): Code(s): N17.9 - Acute kidney failure, unspecified Status: Acute Assessment and Plan: patient not aware of any previous history of kidney disease appears to volume depleted/dehydration mediated given improvement with IVFs evaluation to date: - renal ultrasound normal - urine electrolytes non-prenal - mild proteinuria (740mg) - mildly elevated CPK creatinine continues to improve -- unclear where it will level off too... follow repeat labs and UOP (2) DM2 (diabetes mellitus, type 2): Code(s): E11.9 - Type 2 diabetes mellitus without complications Status: Chronic Assessment and Plan: getting treatment for this follow trend of sugars (3) Hypotension: Code(s): I95.9 - Hypotension, unspecified Status: Acute Assessment and Plan: blood pressure is still lowish holding antihypertensives on IVFs (4) Anemia: Code(s): D64.9 - Anemia, unspecified Status: Acute Assessment and Plan: low but stable related to current kidney issues? follow trend of H/H Will continue to follow. Subjective Date/time seen: 05/09/21 10:05 Continues to do well as the time; no apparent distress or concerns to report at the time of my visit; eating and drinking well; no events overnight or earlier ths AM; overall, he states he feels pretty good. Exam Narrative: General: WD/WN male in NAD Heart: normal S1 and S2; no rub Lungs: clear to auscultation Abdomen: soft, nontender, nondistended, positive bowel sounds Extremities: no cyanosis or clubbing; no edema Skin: warm and intact Objective Data Vital Signs Vital Signs: Vital Signs Temp Pulse Resp BP Pulse Ox 05/09/21 09:21 101/57 L 05/09/21 09:18 100/64 05/09/21 09:15 36.5 C 98 18 102/60 97 05/09/21 04:10 36.2 C L 101 H 20 91/60 L 98 05/09/21 04:05 36.3 C L 81 18 100/60 97 05/09/21 04:00 36.1 C L 74 20 109/53 L 98 05/09/21 02:00 78 05/09/21 00:00 80 05/08/21 22:57 36.7 C 116 H 20 100/66 100 05/08/21 22:00 82 05/08/21 20:02 108/62 05/08/21 20:00 36.6 C 96 20 108/81 99 05/08/21 18:00 94 05/08/21 16:48 36.5 C 93 20 94/59 L 97 05/08/21 16:00 91 20 97 05/08/21 14:00 112 H 05/08/21 12:17 36.7 C 96 20 100/66 96 05/08/21 12:00 102 H 20 97 Intake/Output Intake/Output: Intake & Output 05/07/21 05/07/21 05/08/21 05/09/21 00:59 23:59 23:59 23:59 Intake Total 2060 240 Output Total 1800 Balance 260 240 Meds/Results Medications: Active Medications Generic Name Dose Route Start Last Admin Trade Name Freq PRN Reason Stop Dose Admin Acetaminophen 650 mg 05/04/21 17:21 Acetaminophen 325 Mg Tablet PO Q4H PRN Mild Pain (1-3) or Fever Dextrose 12.5 gm 05/04/21 19:54 Dextrose 50% 25 Gm/50 Ml Syringe IV PUSH PRN PRN Hypoglycemia Protocol Glucagon 1 mg 05/04/21 19:54 Glucagon For Inj 1 Mg Vial IM PRN PRN Hypoglycemia Protocol Glucose 15 gm 05/04/21 19:54 Glucose Oral Gel 15 Gm Of Glucse In 37.5 Gm Tube PO PRN PRN Hypoglycemia Protocol Heparin Sodium (Porcine) 5,000 units 05/04/21 21:00 05/09/21 09:35 Heparin Sodium 5,000 Units/Ml Vial SUB-Q 5,000 units Q12HR MILLIE Administration Dextrose 1,000 mls @ 100 mls/hr 05/04/21 19:54 Dextrose 5% 1,000 Ml IVPB PRN PRN Hypoglycemia Protocol Insulin Aspart 5 units 05/08/21 17:00 05/09/21 09:36 Insulin Aspart (*Bkc) 100 Units/Ml 0.05 units/kg (5 units) 5 units SUB-Q Administration TIDWM REPLACED BY [facility] Insulin Aspart 3 - 6 units 05/08/21 17:00 05/09/21 09:40 Insulin Aspart (*Bkc) 100 Units/Ml SUB-Q 3 units TIDWM MILLIE Administration Protocol Insulin Glargine 16 units 05/04/21 21:00
[2021-05-09 10:51] LABS: Glucose Point of Care 219 mg/dl (65-105)
[2021-05-09 12:13] LABS: Glucose Point of Care 176 mg/dl (65-105)
[2021-05-09] MEDS: polyethylene glycoL 3350 17 GM POWD.PACK PO (13:27)
--- NOTE | 2021-05-09 17:01 | P.DS_ITS ---
DS: Admitting Diagnosis Discharge Date 05/09/2021 Admitting Diagnosis Hyperglycemia DS: Discharge Diagnosis Discharge Diagnosis (1) DM2 (diabetes mellitus, type 2): Code(s): E11.9 - Type 2 diabetes mellitus without complications Status: Chronic Assessment and Plan: Poorly controlled. A1c is 11.8%. Glucose 360 on presentation, no findings to suggest DKA * Managed with Accu-Cheks, moderate dose sliding scale insulin, hypoglycemic protocol during hospitalization * Started on Lantus 16 units qHS and NovoLog 5 units with meals * Given his elevated A1c and limited ability to initiate oral hypoglcyemics given his JONES, he was continued on insulin on discharge. His blood sugars were better controlled with this regimen, ranging 170-250. He was educated extensively on home insulin and felt comfortable with initiating this. * I spoke with art educator, who was unfortunately not able to see the patient but did provide recommendations. He will benefit from outpatient Diabetes Education. * He has been instructed to monitor blood sugars at home ACHS and record for review by PCP with follow-up in 1 week for monitoring. (2) JONES (acute kidney injury): Code(s): N17.9 - Acute kidney failure, unspecified Status: Acute Assessment and Plan: Creatinine elevated at 5.3 on presentation * [place] to be secondary to dehydration, likely related to hyperglycemia, and hypoperfusion from hypotension * Renal ultrasound showed normal kidneys with cysts but no hydronephrosis * He was rehydrated with IV fluids * Creatinine slowly improved down to 1.6 at time of discharge. * He was seen in consultation by nephrology. * He will need repeat BMP in 1 week to monitor kidney function. Outpatient follow-up with Nephrology if renal function does not return to baseline. (3) Hypotension: Code(s): I95.9 - Hypotension, unspecified Status: Acute Assessment and Plan: Blood pressure was 81/55 on presentation and declined to 58/22. May be related to significant dehydration in the setting of multiple antihypertensive agents * He was on several antihypertensive agents prior to admission including amlodipine, lisinopril, furosemide, carvedilol, and spironolactone. * All above agents were discontinued and blood pressure did remain slightly low, although did improve with rehydration and discontinuation of medications. * Orthostatics negative * Initially symptomatic with lightheadedness and dizziness, resolved with rehydration. * He has been instructed to monitor blood pressures at home daily. He will take amlodipine if systolic blood pressure is >150. He will record blood pressures and follow-up with his PCP in 1 week for further monitoring. (4) Congestive heart failure: Code(s): I50.9 - Heart failure, unspecified Status: Acute Assessment and Plan: Echo shows EF of 65% with grade 1 diastolic dysfunction * He was euvolemic on exam. * Furosemide, spironolactone, carvedilol discontinued given JONES and hypotension. * Heart healthy diet (5) Anemia: Code(s): D64.9 - Anemia, unspecified Status: Acute Assessment and Plan: H&H was low but did remain stable. * May be related to kidney disease * Iron panel reviewed, ferritin elevated with normal iron stores, suggestive of chronic disease * B12 and folate within normal limits * Stool occult blood test was positive. He did not have any obvious signs of GI bleeding including melena, hematochezia, hematemesis. He was started on Protonix daily and will follow-up w
--- NOTE | 2021-05-09 17:01 | PM.DS ---
DS: Admitting Diagnosis Discharge Date 05/09/2021 Admitting Diagnosis Hyperglycemia DS: Discharge Diagnosis Discharge Diagnosis (1) DM2 (diabetes mellitus, type 2): Code(s): E11.9 - Type 2 diabetes mellitus without complications Status: Chronic Assessment and Plan: Poorly controlled. A1c is 11.8%. Glucose 360 on presentation, no findings to suggest DKA Managed with Accu-Cheks, moderate dose sliding scale insulin, hypoglycemic protocol during hospitalization Started on Lantus 16 units qHS and NovoLog 5 units with meals Given his elevated A1c and limited ability to initiate oral hypoglcyemics given his JONES, he was continued on insulin on discharge. His blood sugars were better controlled with this regimen, ranging 170-250. He was educated extensively on home insulin and felt comfortable with initiating this. I spoke with life educator, who was unfortunately not able to see the patient but did provide recommendations. He will benefit from outpatient Diabetes Education. He has been instructed to monitor blood sugars at home ACHS and record for review by PCP with follow-up in 1 week for monitoring. (2) JONES (acute kidney injury): Code(s): N17.9 - Acute kidney failure, unspecified Status: Acute Assessment and Plan: Creatinine elevated at 5.3 on presentation [place] to be secondary to dehydration, likely related to hyperglycemia, and hypoperfusion from hypotension Renal ultrasound showed normal kidneys with cysts but no hydronephrosis He was rehydrated with IV fluids Creatinine slowly improved down to 1.6 at time of discharge. He was seen in consultation by nephrology. He will need repeat BMP in 1 week to monitor kidney function. Outpatient follow-up with Nephrology if renal function does not return to baseline. (3) Hypotension: Code(s): I95.9 - Hypotension, unspecified Status: Acute Assessment and Plan: Blood pressure was 81/55 on presentation and declined to 58/22. May be related to significant dehydration in the setting of multiple antihypertensive agents He was on several antihypertensive agents prior to admission including amlodipine, lisinopril, furosemide, carvedilol, and spironolactone. All above agents were discontinued and blood pressure did remain slightly low, although did improve with rehydration and discontinuation of medications. Orthostatics negative Initially symptomatic with lightheadedness and dizziness, resolved with rehydration. He has been instructed to monitor blood pressures at home daily. He will take amlodipine if systolic blood pressure is >150. He will record blood pressures and follow-up with his PCP in 1 week for further monitoring. (4) Congestive heart failure: Code(s): I50.9 - Heart failure, unspecified Status: Acute Assessment and Plan: Echo shows EF of 65% with grade 1 diastolic dysfunction He was euvolemic on exam. Furosemide, spironolactone, carvedilol discontinued given JONES and hypotension. Heart healthy diet (5) Anemia: Code(s): D64.9 - Anemia, unspecified Status: Acute Assessment and Plan: H&H was low but did remain stable. May be related to kidney disease Iron panel reviewed, ferritin elevated with normal iron stores, suggestive of chronic disease B12 and folate within normal limits Stool occult blood test was positive. He did not have any obvious signs of GI bleeding including melena, hematochezia, hematemesis. He was started on Protonix daily and will follow-up with his primary care provider to schedule EGD and colonoscopy as an outpatient. Discussed symptoms for which to return that could indicate worsening anemia including any bleeding, weakness, dizziness, lightheadedness, shortness of breath. Repeat H&H in 1 week DS: Summary Hospital Course Hospital Course: Date of admission: 05/04/2021 Date of discharge: 05/09/2021 Gera Dumont is a 51-year-old male w
[2021-05-09 20:12] LABS: IFOB Positive Control Positive; Immunochemical Fecal Occult Bl Positive (N)
--- NOTE | 2021-05-22 14:18 | PC.NURSE ---
This pt Gera No was discharged on 05/09/21 at 1600. The pt's heart rate increased the morning of discharge, being around 108 bpm. pt's heart rate was spot checked continuously to make sure heart rate went down before being discharged home. Pt's heart rate went down to 82, therefore the pt was discharged home. The heart rate of 82 failed to be charted.
== END 2021-05-09 16:00 | disposition home or self-care (01) | DRG 638 ==
LOC: ANHED 17:19 → ANHIMU 21:06 → ANH3MED 05-09 03:10 → ANHIMU 05-10 13:35
PROVIDERS: Hospitalist; Internal Medicine; Internal Medicine Nephrology; Nurse Practitioner; Nurse Practitioner Adult Health; Admitting Provider Internal Medicine; Emergency Provider Emergency Medicine; PCP Family Medicine; Visit Provider Physician Assistant
DX: E11.00 Type 2 diabetes mellitus with hyperosmolarity without nonketotic hyperglycemic-hyperosmolar coma (NKHHC) (principal); N17.9 Acute kidney failure, unspecified; I50.32 Chronic diastolic (congestive) heart failure; E11.65 Type 2 diabetes mellitus with hyperglycemia; E86.0 Dehydration; D63.1 Anemia in chronic kidney disease; E78.5 Hyperlipidemia, unspecified; Z86.79 Personal history of other diseases of the circulatory system
CPT/HCPCS: 36415; 71250; 74176; 76775; 80048; 80053; 80069; 82010; 82274; 82550; 82570; 82607; 82728; 82746; 82803; 82948; 83036; 83540; 83550; 83605; 83735; 83880; 84156; 84300; 84443; 84484; 85014; 85018; 85025; 85027; 85046; 85380; 85652; 86140; 86850; 86900; 86901; 93005; 93306; 96361; 96374; 99285; A9270; J1644; J1815; J7030; J7120

== ENCOUNTER 2023-10-25 12:16 | Inpatient (IN) | payer OTHER, SELFPAY ==
[2023-10-25] VITALS (12 sets, daily range): BP systolic 107–125; BP diastolic 67–84; PULSE 102–116; RESP 16–25; TEMP 36.9–39.3; O2SAT 92–97; BMI 35.2
--- NOTE | ~2023-10-25 | CT_ITS ---
EXAMINATION: CT abdomen pelvis w con DATE: 10/25/2023 13:45 INDICATION: Left lower quadrant abdominal pain. Constipation. Fever. TECHNIQUE: Computed tomography (CT) of the abdomen and pelvis was performed with 100 mL Omnipaque 350 intravenous contrast. Automated exposure control and iterative reconstruction technique were employe d. The dose-length product was 1347.66 mGy-cm. COMPARISON: CT abdomen and pelvis 05/04/2021 FINDINGS: The visualized portions of the lung bases show minimal atelectasis. No pleural effusion. Th e heart size is normal. No pericardial effusion. There are cysts in the liver measuring up to 5.0 cm. The spleen, gallbladder, pancreas, and right adrenal gland are normal. There is a 2.3 cm mass in lef t adrenal gland measuring soft tissue attenuation, stable from 05/04/2021, likely an adenoma. There ar e cysts in the kidneys measuring up to 2.7 cm on the right. There is a 3 mm stone in right kidney. Th ere is prominent fat in the inguinal canals that may be hernias. There are scattered diverticula in t he colon. There is wall thickening of the sigmoid colon with surrounding fat stranding, consistent wi th diverticulitis. There are punctate foci of free gas adjacent to the sigmoid colon. There are no di lated loops of bowel. The appendix is normal. There are no pathologically enlarged lymph nodes. There is no free intraperitoneal fluid. There is mild thoracic spondylosis and severe lumbar stenosis. IMPRESSION: 1. Sigmoid diverticulitis with microperforation. No abscess. Reviewed, dictated and finalized at location A.
[2023-10-25 13:01] LABS: Basophils Percent Auto 0.2 % (0.2-1.2); Eosinophils Percent Auto 0.2 % (0-4.4); Hematocrit 51.4 % (42.0-52.0); Immature Granulocyte Absolute 0.06 K/mm3 (0.00-0.031); Immature Granulocyte Percent A 0.4 % (0-0.5); Lymphocytes Absolute Auto 1.47 K/mm3 (0.9-3.2); Lymphocytes Percent Auto 8.6 % (18.3-44.2); Mean Corpuscular HGB Conc 33.1 g/dl (32-36); Mean Corpuscular Hemoglobin 29.2 pg (26-34); Mean Corpuscular Volume 88.2 fl (80-100); Mean Platelet Volume 9.6 fl (7.4-10.4); Monocytes Absolute Auto 1.3 K/mm3 (0.1-0.6); Monocytes Percent Auto 7.5 % (2.6-8.5); Neutrophils Absolute Auto 14.1 K/mm3 (1.3-6.7); Neutrophils Percent Auto 83.1 % (45.5-73.1); Platelet Count Result 227 k/mm3 (150-375); Red Blood Count 5.83 M/mm3 (4.6-6.20); Red Cell Distribution Width 13.9 % (11.5-14.5)
[2023-10-25 13:06] LABS: Appearance Urine Clear (Clear); Bacteria Urine None Seen /hpf; Bilirubin Urine Negative (Negative); Blood Urine Negative (Negative); Color Urine Dark Yellow (Yellow); Glucose Urine UA Negative (Negative); Ketones Urine 1+ mg/dL (Negative); Leukocyte Esterase Ur Negative LEU/UL (Negative); Nitrate Urine Negative (Negative); Protein Urine 2+ mg/dL (Negative); RBC Urine 0-2 /hpf (0-2); Specific Grav Ur 1.021 (1.001-1.035); Squamous Epithelial Cell Urine None Seen /hpf (Few); WBC Urine 0-5 /hpf (0-3)
--- NOTE | 2023-10-25 13:08 | ED.ABDPAIN ---
HPI - Abdominal Pain General Chief Complaint: Abdominal Pain <KATJA Han Last Filed: 10/25/23 14:50> Stated Complaint: ABD PAIN X2D <KATJA Han Last Filed: 10/25/23 14:50> Time Seen by Provider: 10/25/23 12:33 <KATJA Han Last Filed: 10/25/23 14:50> Source: patient <KATJA Han Last Filed: 10/25/23 14:50> Mode of arrival: ambulatory <KATJA Han Last Filed: 10/25/23 14:50> Limitations: no limitations <KATJA Han Last Filed: 10/25/23 14:50> History of Present Illness HPI narrative: Patient is a 53 y/o male who presents to the ED with c/o left lower abdominal pain. Patient reports having pain in his left lower quadrant for the last 2 days. Pain has been fairly constant. Pain is worse with movement. States he was constipated at first, took a Dulcolax last night and had a bowel movement today which alleviated his pain slightly. States he developed a fever today, which prompted his presentation. He has not taken anything for the pain or fever today. Denies nausea or vomiting. Denies rectal bleeding or melena. Denies history of diverticulitis. <KATJA Han Last Filed: 10/25/23 14:50> Related Data Home Medications: Home Medications Medication Instructions Recorded Confirmed amlodipine 5 mg tablet 5 mg PO DAILY 05/04/21 10/25/23 rosuvastatin 40 mg tablet 40 mg PO DAILY 05/04/21 10/25/23 furosemide 20 mg tablet 20 mg PO DAILY 10/25/23 10/25/23 insulin lispro 100 unit/mL 2 unit subcut AC 10/25/23 10/25/23 subcutaneous pen (Humalog KwikPen (U-100) Insulin) lisinopril 20 mg tablet 20 mg PO DAILY 10/25/23 10/25/23 metformin 500 mg tablet,extended 500 mg PO DAILY 10/25/23 10/25/23 release 24 hr <Karina Lindo PA-C - Last Filed: 10/25/23 14:50> Allergies/Adverse Reactions: Allergies Allergy/AdvReac Type Severity Reaction Status Date / Time No Known Allergies Allergy Verified 10/25/23 16:37 <Karina Lindo PA-C - Last Filed: 10/25/23 14:50> Review of Systems Review of Systems: CONSTITUTIONAL: See HPI. CARDIOVASCULAR: Denies chest pain. RESPIRATORY: Denies dyspnea. GASTROINTESTINAL: See HPI. GENITOURINARY: Denies dysuria or hematuria. MUSCULOSKELETAL: Denies back pain, extremity pain, myalgia. <Karina Lindo PA-C - Last Filed: 10/25/23 14:50> All systems reviewed & are unremarkable except as noted in HPI and below <Karina Lindo PA-C - Last Filed: 10/25/23 14:50> [facility] Past Medical History Medical History: Medical History Brain aneurysm CHF (congestive heart failure) Congestive heart failure DM2 (diabetes mellitus, type 2) History of cerebral aneurysm <Karina Lindo PA-C - Last Filed: 10/25/23 14:50> Surgical History Surgical History: Surgical History H/O brain surgery coil for brain aneurysm H/O cardiac catheterization S/P hernia repair <Karina Lindo PA-C - Last Filed: 10/25/23 14:50> Family History Family History: Family History Father Patient's father is Hypertension Pancreatic cancer Mother Atrial fibrillation Hypertension <Karina Lindo PA-C - Last Filed: 10/25/23 14:50> Social History Social History: Social History Social History: the patient lives with his mother and grandmother. 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 the patient stated that he quit smoking about 4 years ago and had smoked for 20 years. The patient has no children. He occasionally drinks alcohol on the weekends. He does not have a durable power divorce attorney for healthcare but may consider his brother t
[2023-10-25 13:12] LABS: Alanine Aminotransferase 28 U/L (6-50); Albumin Level 5.1 g/dL (3.5-5.1); Alkaline Phosphatase 104 U/L (38-126); Anion Gap 8 mmol/L (4-12); Aspartate Amino Transferase 25 U/L (17-59); Bilirubin,Total 1.3 mg/dL (0.2-1.3); Blood Urea Nitrogen 15 mg/dL (9-20); Calcium 9.6 mg/dL (8.4-10.2); Carbon Dioxide 30 mmol/L (22-30); Chloride 97 mmol/L (98-107); Estimated CRCL calculation 79 ml/min; Estimated Glomerular Filt Rate > 60; Glucose 140 mg/dL (65-110); Lipase 80 U/L (23-300); Potassium 3.5 mmol/L (3.4-5.0); Sodium 135 mmol/L (137-145)
[2023-10-25] MEDS: ACETAMINOPHEN 500 MG TABLET 1000 MG PO (13:27)
[2023-10-25] MEDS: MORPHINE SULFATE (*CRX) 4 MG/ML INJ IV PUSH ×2 (13:27→20:09)
[2023-10-25] MEDS: ONDANSETRON INJ 4 MG/2 ML VIAL IV PUSH ×3 (13:27→20:09)
[2023-10-25] MEDS: SODIUM CHLORIDE 0.9% IV 1,000 ML 999 ML IV CONT ×2 (13:28→14:44)
[2023-10-25 13:43] LABS: Add Urine Microscopic? YES
[2023-10-25 13:54] LABS: Influenza A QL RT-PCR Negative (Negative); Influenza B QL RT-PCR Negative (Negative); RSV RNA, RT-PCR Negative (Negative); SARS-CoV-2 RNA PCR Negative (Negative)
[2023-10-25 14:31] LABS: Lactic Acid Reflex 1.2 mmol/L (0.7-2.0)
[2023-10-25] MEDS: PIPERACILLN/TAZ 3.375GM/NS50ML 3.375 GM/50 ML BAG IVPB ×3 (14:42→23:40)
[2023-10-25] MEDS: HYDROmorphone HCL INJ (*CRX) 1 MG/ML SYR IV PUSH ×3 (14:56→22:34)
--- NOTE | 2023-10-25 15:36 | PM.IMHP ---
H&P: HPI History of Present Illness Date/Time: 10/25/23 14:30 Chief Complaint: Abdominal pain. Narrative: This is a very pleasant 53-year-old male with history of nonischemic dilated cardiomyopathy with normalization of ejection fraction, cerebral aneurysm status post clipping, hypertension, hyperlipidemia, and insulin-dependent diabetes mellitus who presented to the emergency department for evaluation of abdominal pain. The patient provides the following history. He gives a 2 day history of nearly constant, nonradiating, cramping lower abdominal pain which he 1st attributed to constipation. In fact he took a Dulcolax last night and reports having a small but loose, nonbloody stools this morning which did not improve his discomfort. In fact his abdominal pain seemed to have been worse today and he has developed subjective fever and chills. Appetite has not been great. He denies nausea and vomiting. He has never had similar symptoms. In the ED: His temperature was as high as 102.7? F. He has been tachycardic with stable blood pressures. Labs were significant for WBC count of 17.0, sodium 135, chloride 97, glucose 140, lactic acid 1.2. CT of the abdomen and pelvis showed sigmoid diverticulitis with microperforation with no evidence of abscess. He was given a dose of Zosyn is being admitted in this setting for further treatment. Review of Systems Review of Systems: 12 systems were reviewed and are negative except for as per HPI. [facility] Past Medical History Medical History (Updated 10/25/23 @ 19:21 by Vivien Mchugh PA-C) Cerebral aneurysm Hyperlipidemia Hypertension Insulin dependent type 2 diabetes mellitus Nonischemic cardiomyopathy With improved ejection fraction. Surgical History Surgical History (Updated 10/25/23 @ 19:21 by Vivien Mchugh PA-C) History of cardiac catheterization Normal coronaries. History of craniotomy With coiling of ruptured cerebral aneurysm. History of hernia repair Family History Family History Father Patient's father is Hypertension Pancreatic cancer Mother Atrial fibrillation Hypertension Social History Social History (Updated 10/25/23 @ 19:22 by Vivien Mchugh PA-C) Social History: Surrogate medical decision maker: Kil No, sibling. Code status: Full code. Years smoked: 20 Smoking status: Former smoker Alcohol intake: current Drinks per week: 20 Substance use: never Substance use type: does not use Do You Feel Safe in your Home?: Yes Lack of Transportation: No Lack of Food: Never True Current Housing: Decline to Answer Concerned About Future Housing: Decline to Answer Difficulty Paying Gas/Electric Bills: Decline to Answer Difficulty Paying for Meds: Decline to Answer Currently Unemployed: Decline to Answer Education: Decline to Answer Difficulty w/ Childcare or Family Care: Decline to Answer Spiritual care concerns: No Meds Home Medications and Allergies Home Medications Medication Instructions Recorded Confirmed Type amlodipine 5 mg tablet 5 mg PO DAILY 05/04/21 10/25/23 History rosuvastatin 40 mg tablet 40 mg PO DAILY 05/04/21 10/25/23 History blood sugar diagnostic ([facility] 05/09/21 Rx Verio test strips) blood-glucose meter ([facility] 05/09/21 Rx Verio Flex Meter) insulin glargine 100 unit/mL 16 unit (0.16 mL) subcut HS #10 mL 05/09/21 10/25/23 Rx subcutaneous solution (Lantus U-100 Insulin) insulin syringe-needle U-100 1/2 #1 [facility] 05/09/21 Rx mL 31 gauge x 15/64 (BD Veo Insulin Syringe Ultra-Fine) lancets 30 gauge ([facility] 05/09/21 Rx Plus Lancet) pantoprazole 40 mg tablet,delayed 40 mg PO QAM #30 tabs 05/09/21 10/25/23 Rx release (Protonix) pen needle, diabetic 32 gauge x #1 [facility] 05/09/21 Rx 5/32 (BD Ultra-Fine Maisha Pen Needle) furosemide 20 mg tablet 20 mg PO DAILY
--- NOTE | 2023-10-25 15:38 | PM.CNGS ---
Assessment and Plan Assessment and plan (1) Diverticulitis of colon with perforation: Code(s): K57.20 - Diverticulitis of large intestine with perforation and abscess without bleeding Status: Acute Assessment and Plan: Recommend bowel rest except for ice chips. Broad-spectrum IV antibiotics to include Zosyn as patient is diabetic and higher risk. I discussed with him the usual course of diverticulitis but the potential for surgical intervention either during the acute infection or at a later date to prevent recurrence. He has not had a colonoscopy and, assuming the acute episode resolves, should probably be scheduled for 1 in 4-6 weeks. Thank you for asking me to see this patient in consultation. I will follow along with you. 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 Code(s): E11.9 - Type 2 diabetes mellitus without complications Status: Chronic (4) History of cerebral aneurysm: Code(s): Z86.79 - Personal history of other diseases of the circulatory system Status: Chronic (5) Hypertension: Qualifiers: Hypertension type: primary hypertension Qualified Code(s): I10 - Essential (primary) hypertension Code(s): I10 - Essential (primary) hypertension Status: Chronic History of Present Illness Consult details Consult date: 10/25/23 Reason for consult: abdominal pain Requesting physician: Karina Lindo PA-C Narrative: Patient is a 53-year-old man who started having left lower quadrant abdominal pain couple of days ago. He also had obstipation. Pain was gradually getting worse. He took some do collects this morning and did have a bowel movement but following this he felt feverish and noticed the pain was worse. He came to the emergency room where he was noted to have an elevated white blood cell count of over 17,000. He had fever over 39? centigrade. His exam showed exquisite tenderness with guarding in the left lower quadrant. He had a CT scan of the abdomen and pelvis which showed diverticulitis with perforation. There was no abscess in the perforation is disc arrived as a micro perforation. He has never had diverticulitis before. He has never had a colonoscopy but did have a Cologuard 2 or 3 years ago which was negative. I was asked to see the patient in consultation. I saw him in the emergency room. He had received some pain medication but was still having some pain and particularly having pretty severe pain if he tried to move. He is an insulin-dependent diabetic and tells me that he was just started on metformin as well about 12 days ago. He also has essential hypertension. He has a history of intracranial aneurysm and intracranial surgery for coiling the aneurysm.. He is admitted now to the hospitalist service and was consulted to follow along as well with assistance and possibly the need for surgery should the diverticulitis fail to improve. Review of Systems Review of Systems: All systems reviewed & are unremarkable except as noted in HPI and below (HPI and those items noted below) Constitutional: Constitutional: Reports as per HPI, Denies chills and Reports fever(s) Cardiovascular: Cardiovascular: Denies chest pain, Denies diaphoresis, Denies dyspnea and Denies paroxysmal nocturnal dyspnea Respiratory: Respiratory: Denies chest congestion, Denies cough and Denies dyspnea Gastrointestinal: Gastrointestinal: Reports as per HPI, Reports
--- NOTE | 2023-10-25 16:32 | ADMGEN ---
This patient, Gera Dumont, was admitted to Medical Room [facility]. Patient/family oriented to hospital policies and general routines including ID bracelet, bed and alarms, visiting hours, pain management, procedures, bathroom and other care routines, personal items, smoking policy, room service/diet, and visiting hours. Information on how to activate the Rapid Response Team has been discussed. Patient/Family are encouraged to report perceived risks to care and to ask questions if they do not understand what they are told or what they should do.
[2023-10-25] MEDS: SODIUM CHLORIDE 0.9% IV 1,000 ML 100 ML IV CONT (17:04)
[2023-10-26] VITALS (8 sets, daily range): BP systolic 110–125; BP diastolic 64–71; PULSE 86–118; RESP 16–18; TEMP 36.2–38.3; O2SAT 91–95
[2023-10-26] MEDS: ONDANSETRON INJ 4 MG/2 ML VIAL IV PUSH ×2 (01:00→04:50)
[2023-10-26] MEDS: MORPHINE SULFATE (*CRX) 4 MG/ML INJ IV PUSH ×3 (01:01→21:16)
[2023-10-26 01:08] LABS: Glucose Point of Care 138 mg/dl (65-105)
[2023-10-26] MEDS: SODIUM CHLORIDE 0.9% IV 1,000 ML 100 ML IV CONT (04:50)
[2023-10-26] MEDS: PIPERACILLN/TAZ 3.375GM/NS50ML 3.375 GM/50 ML BAG IVPB ×4 (05:51→23:50)
[2023-10-26 05:57] LABS: Hematocrit 43.5 % (42.0-52.0); Hemoglobin 13.9 g/dL (14.0-18.0); Mean Corpuscular Hemoglobin 29.3 pg (26-34); Mean Corpuscular Volume 91.6 fl (80-100); Mean Platelet Volume 9.5 fl (7.4-10.4); Platelet Count Result 167 k/mm3 (150-375); Red Blood Count 4.75 M/mm3 (4.6-6.20); White Blood Count 15.8 K/mm3 (4.5-10.0)
[2023-10-26 06:13] LABS: Anion Gap 6 mmol/L (4-12); Blood Urea Nitrogen 15 mg/dL (9-20); Calcium 8.3 mg/dL (8.4-10.2); Carbon Dioxide 24 mmol/L (22-30); Chloride 104 mmol/L (98-107); Estimated CRCL calculation 68 ml/min; Estimated Glomerular Filt Rate 53; Glucose 120 mg/dL (65-110); Magnesium 1.9 mg/dL (1.6-2.3); Potassium 3.5 mmol/L (3.4-5.0); Sodium 134 mmol/L (137-145)
[2023-10-26 08:09] LABS: Glucose Point of Care 134 mg/dl (65-105)
[2023-10-26 08:09] LABS: Glucose Point of Care 138 mg/dl (65-105)
[2023-10-26] MEDS: HYDROmorphone HCL INJ (*CRX) 1 MG/ML SYR IV PUSH (08:38)
[2023-10-26] MEDS: PANTOPRAZOLE SODIUM IV 40 MG VIAL IV PUSH (08:39)
--- NOTE | 2023-10-26 11:09 | PM.PNGS ---
Progress Note: A&P Assessment and Plan (1) Diverticulitis of colon with perforation: Code(s): K57.20 - Diverticulitis of large intestine with perforation and abscess without bleeding Status: Acute Assessment and Plan: Improving but still very tender left lower quadrant requiring analgesics. No sign of bowel function returning as yet. Continue NPO except ice chips and continue IV Zosyn antibiotics. Follow serial exam and labs. (2) Insulin dependent type 2 diabetes mellitus: Code(s): E11.9 - Type 2 diabetes mellitus without complications; Z79.4 - residential (current) use of insulin Status: Chronic (3) Hypertension: Qualifiers: Hypertension type: primary hypertension Qualified Code(s): I10 - Essential (primary) hypertension Code(s): I10 - Essential (primary) hypertension Status: Chronic Subjective Subjective Date/Time Seen: 10/26/23 11:09 Patient reports: feels better, pain is less, no flatus, no bowel movement and afebrile Review of Systems Review of Systems: All systems reviewed & are unremarkable except as noted in HPI and below (HPI and those items noted below) Constitutional: Constitutional: Denies chills and Denies fever(s) (No fever since 2:00 p.m. yesterday) Cardiovascular: Cardiovascular: Denies chest pain, Denies diaphoresis, Denies dyspnea and Denies paroxysmal nocturnal dyspnea Respiratory: Respiratory: Denies chest congestion, Denies cough and Denies dyspnea Integumentary/Breasts: Skin/Breast: Denies lesions and Denies rash Exam Const: General: comfortable, no acute distress, alert and awake Orientation/consciousness: patient oriented x3 GI: Inspection: normal to inspection, non-distended, obesity and no scars GI Palp: Yes Soft to palpation, Yes Tenderness to palpation present (GI) (Still extremely tender left lower quadrant), Yes Guarding due to palpation present (GI) (Left lower quadrant), No Hernia present, No Palpable mass present and No Ascites present Auscultation: absent bowel sounds Neuro: General: patient oriented x3 and no focal motor deficits Extrem: General: no calf tenderness and no edema Psych: Affect: normal affect Insight: Good insight present (Psych) Judgement: Good judgement present (Psych) Objective Data Vital Signs Vital Signs: Vital Signs - 24 hr 10/25/23 12:21 10/25/23 12:25 10/25/23 12:31 Temperature 39.1 C H Pulse Rate 109 H 109 H 109 H Respiratory Rate 22 H 19 16 Blood Pressure 125/77 113/84 Pulse Oximetry 97 96 96 Oxygen Delivery Room Air 10/25/23 14:11 10/25/23 12:46 10/25/23 13:01 Temperature 39.3 C H Pulse Rate 108 H 111 H Respiratory Rate 20 25 H Blood Pressure 112/67 115/82 Pulse Oximetry 95 95 Oxygen Delivery 10/25/23 13:16 10/25/23 14:44 10/25/23 18:08 Temperature 36.9 C Pulse Rate 107 H 109 H 105 H Respiratory Rate 21 H 18 16 Blood Pressure 121/81 121/79 115/68 Pulse Oximetry 95 92 93 Oxygen Delivery 10/25/23 16:00 10/25/23 18:18 10/25/23 20:00 Temperature Pulse Rate 102 H 116 H Respiratory Rate Blood Pressure Pulse Oximetry Oxygen Delivery Room Air 10/25/23 22:26 10/26/23 00:00 10/26/23 04:00 Temperature 37.6 C H Pulse Rate 112 H 116 H 111 H Respiratory Rate 16 Blood Pressure 107/68 Pulse Oximetry 94 Oxygen Delivery 10/26/23 06:00 10/26/23 08:00 Temperature 37.6 C Pulse Rate 101 H Respiratory Rate 16 Blood Pressure 124/71 Pulse Oximetry 94 Oxygen Delivery Room Air Intake/Output Intake/Output: Intake & Output 10/23/23 10/24/23 10/25/23 10/26/23 23:59 23:59 23:59 23:59 Intake Total 2100 1050 Balance 2100 1050 Meds/Results Medications: Active Medications Generic Name Dose Route Start Last Admin Trade Name Ramiroq PRN Reason Stop Dose Admin Acetaminophen 650 mg 10/26/23 12:00 Acetaminophen 325 Mg Tablet PO Q6HR [facility] Dextrose 12.5 gm 10/25/23 19:27 Dextrose 50% 25 Gm/50
[2023-10-26 12:16] LABS: Glucose Point of Care 101 mg/dl (65-105)
[2023-10-26] MEDS: ENOXAPARIN 40 MG/0.4 ML SYRINGE SUB-Q (12:42)
[2023-10-26] MEDS: ACETAMINOPHEN 325 MG TABLET 650 MG PO ×3 (12:42→23:50)
[2023-10-26] MEDS: KCL 20MEQ/0.9% SOD CHL 1,000 ML 100 ML IV CONT ×2 (12:42→21:18)
--- NOTE | 2023-10-26 13:17 | PM.IMPN ---
Progress Note: A&P Assessment and Plan (1) Sepsis: Qualifiers: Sepsis acute organ dysfunction status: unspecified Sepsis type: sepsis due to unspecified organism Qualified Code(s): A41.9 - Sepsis, unspecified organism Code(s): A41.9 - Sepsis, unspecified organism Status: Acute Assessment and Plan: Patient with sepsis present on admission with tachycardia, leukocytosis and fever. Sepsis due to sigmoid diverticulitis with micro perforation. Patient started on Zosyn. He appears comfortable. Pain is still significant. White count trending downward. Fever curve is improved Continue current IV antibiotics (2) Diverticulitis of colon with perforation: Code(s): K57.20 - Diverticulitis of large intestine with perforation and abscess without bleeding Status: Acute Assessment and Plan: CT of the abdomen and pelvis showing sigmoid diverticulitis with micro perforation. As above. Follow-up on blood cultures. 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 Continue AccuCheks covering with sliding scale. Hypoglycemia protocol available as needed. Continue to monitor (4) Hypertension: Qualifiers: Hypertension type: primary hypertension Qualified Code(s): I10 - Essential (primary) hypertension Code(s): I10 - Essential (primary) hypertension Status: Chronic Assessment and Plan: Patient's blood pressure was reviewed on 10/25 Blood pressure remains well controlled. Will continue to monitor Plan Diet -NPO Code status -full DVT prophylax -Lovenox Subjective Date/time seen: 10/26/23 13:17 Interval history: 53yo male wit NICMP, hx of cerebral aneurysm s/p clip, DM and HTN here for abdominal pain. Patient received pain medication about an hour before exam. Pain was 3/10 at rest. Pain increases to 8/10 with activity. No bowel movements since admission but is passing flatus. He is voiding normally. He has never had a colonoscopy. Exam Narrative: Tm 102.7 100.9 119/64 108 16 92% ra Gen - NARD Chest - CTA bilaterally, nml RR CV - RRR S1/S2; Tele showing PVCs. Abd - Soft, LLQ tenderness. +BS Ext - No pedal edema Neuro - Alert and oriented. Nonfocal exam. Psych - Nml mood and affect Skin - Warm and dry Objective Data Vital Signs Vital Signs: Vital Signs - 24 hr 10/25/23 14:11 10/25/23 14:44 10/25/23 18:08 Temperature 102.7 F H 98.4 F Pulse Rate 109 H 105 H Respiratory Rate 18 16 Blood Pressure 121/79 115/68 Pulse Oximetry 92 93 Oxygen Delivery 10/25/23 16:00 10/25/23 18:18 10/25/23 20:00 Temperature Pulse Rate 102 H 116 H Respiratory Rate Blood Pressure Pulse Oximetry Oxygen Delivery Room Air 10/25/23 22:26 10/26/23 00:00 10/26/23 04:00 Temperature 99.7 F H Pulse Rate 112 H 116 H 111 H Respiratory Rate 16 Blood Pressure 107/68 Pulse Oximetry 94 Oxygen Delivery 10/26/23 06:00 10/26/23 08:00 10/26/23 12:33 Temperature 99.6 F 100.9 F H Pulse Rate 101 H 108 H Respiratory Rate 16 16 Blood Pressure 124/71 119/64 Pulse Oximetry 94 92 Oxygen Delivery Room Air Intake/Output Intake/Output: Intake & Output 10/23/23 10/24/23 10/25/23 10/26/23 23:59 23:59 23:59 23:59 Intake Total 2100 1100 Balance 2100 1100 Meds/Results Medications: Active Medications Generic Name Dose Route Start Last Admin Trade Name Freq PRN Reason Stop Dose Admin Acetaminophen 650 mg 10/26/23 12:00 10/26/23 12:42 Acetaminophen 325 Mg Tablet PO 650 mg Q6HR [facility] Administration Dextrose 12.5 gm 10/25/23 19:27 Dextrose 50% 25 Gm/50 Ml Syringe IV PUSH PRN PRN Hypoglycemia Protoc
[2023-10-26] MEDS: POTASSIUM CHLORIDE 20 MEQ ER TABLET PO (17:19)
[2023-10-26 18:09] LABS: Glucose Point of Care 130 mg/dl (65-105)
[2023-10-26] MEDS: INSULIN GLARGINE (*BKC) 100 UNITS/ML 8 UNITS SUB-Q (21:16)
[2023-10-26 21:37] LABS: Glucose Point of Care 126 mg/dl (65-105)
[2023-10-26 23:55] LABS: Glucose Point of Care 128 mg/dl (65-105)
[2023-10-27] VITALS: BP 119/61; PULSE 108; RESP 18; TEMP 37.3; O2SAT 91
[2023-10-27 04:52] VITALS: BP 125/80; PULSE 95; RESP 20; TEMP 36.9; O2SAT 93
[2023-10-27] MEDS: PIPERACILLN/TAZ 3.375GM/NS50ML 3.375 GM/50 ML BAG IVPB ×3 (05:26→17:23)
[2023-10-27] MEDS: ACETAMINOPHEN 325 MG TABLET 650 MG PO ×3 (05:26→17:23)
[2023-10-27 06:20] LABS: Glucose Point of Care 112 mg/dl (65-105)
[2023-10-27 06:30] LABS: Anion Gap 4 mmol/L (4-12); Blood Urea Nitrogen 11 mg/dL (9-20); Calcium 8.4 mg/dL (8.4-10.2); Carbon Dioxide 23 mmol/L (22-30); Chloride 105 mmol/L (98-107); Estimated CRCL calculation 86 ml/min; Estimated Glomerular Filt Rate > 60; Glucose 112 mg/dL (65-110); Potassium 3.8 mmol/L (3.4-5.0); Sodium 132 mmol/L (137-145)
[2023-10-27 06:33] LABS: Hematocrit 39.9 % (42.0-52.0); Mean Corpuscular HGB Conc 32.6 g/dl (32-36); Mean Corpuscular Hemoglobin 29.3 pg (26-34); Mean Corpuscular Volume 89.9 fl (80-100); Mean Platelet Volume 9.6 fl (7.4-10.4); Platelet Count Result 161 k/mm3 (150-375); Red Blood Count 4.44 M/mm3 (4.6-6.20); Red Cell Distribution Width 13.8 % (11.5-14.5); White Blood Count 10.8 K/mm3 (4.5-10.0)
[2023-10-27] MEDS: KCL 20MEQ/0.9% SOD CHL 1,000 ML 100 ML IV CONT (09:51)
[2023-10-27] MEDS: POTASSIUM CHLORIDE 20 MEQ ER TABLET PO ×2 (09:51→17:23)
[2023-10-27] MEDS: ENOXAPARIN 40 MG/0.4 ML SYRINGE SUB-Q (09:51)
[2023-10-27] MEDS: PANTOPRAZOLE SODIUM IV 40 MG VIAL IV PUSH (09:51)
--- NOTE | 2023-10-27 11:12 | PM.PNGS ---
Progress Note: A&P Assessment and Plan (1) Diverticulitis of colon with perforation: Code(s): K57.20 - Diverticulitis of large intestine with perforation and abscess without bleeding Status: Acute Assessment and Plan: Making good improvement now. Tenderness much better. Temperature curve is decreasing. Much less pain. White blood cell count decreasing. Will start on full liquids. Saline lock IV with good oral intake. Start full liquid diet. 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 Status: Chronic (3) Hypertension: Qualifiers: Hypertension type: primary hypertension Qualified Code(s): I10 - Essential (primary) hypertension Code(s): I10 - Essential (primary) hypertension Status: Chronic Subjective Subjective Date/Time Seen: 10/27/23 11:12 Patient reports: feels better, pain is less, bowel movement and afebrile Review of Systems Review of Systems: All systems reviewed & are unremarkable except as noted in HPI and below (HPI) Exam Const: General: comfortable and no acute distress Orientation/consciousness: patient oriented x3 GI: Inspection: normal to inspection, non-distended and obesity GI Palp: Yes Soft to palpation, Yes Tenderness to palpation present (GI) (cloth bleaching range tender left lower quadrant but not as much as before.), No Guarding due to palpation present (GI), No Hernia present, No Palpable mass present and No Rebound tenderness present Auscultation: Hypoactive bowel sounds present Neuro: General: patient oriented x3 and no focal motor deficits Extrem: General: no calf tenderness and no edema Psych: Affect: normal affect Insight: Good insight present (Psych) Judgement: Good judgement present (Psych) Objective Data Vital Signs Vital Signs: Vital Signs - 24 hr 10/26/23 12:33 10/26/23 12:00 10/26/23 16:11 Temperature 38.3 C H 37.1 C Pulse Rate 108 H 118 H 101 H Respiratory Rate 16 18 Blood Pressure 119/64 110/66 Pulse Oximetry 92 91 Oxygen Delivery 10/26/23 21:13 10/26/23 20:00 10/27/23 00:00 Temperature 36.2 C L 37.3 C Pulse Rate 86 108 H Respiratory Rate 16 18 Blood Pressure 125/68 119/61 Pulse Oximetry 95 91 Oxygen Delivery Room Air 10/27/23 04:52 10/27/23 09:51 Temperature 36.9 C Pulse Rate 95 Respiratory Rate 20 Blood Pressure 125/80 Pulse Oximetry 93 Oxygen Delivery Room Air Max temperature 38.3? at 12:30 p.m. yesterday. Afebrile since then. Intake/Output Intake/Output: Intake & Output 10/24/23 10/25/23 10/26/23 10/27/23 23:59 23:59 23:59 23:59 Intake Total 2099 2059 125 Balance 2099 2059 1249 Meds/Results Medications: Active Medications Generic Name Dose Route Start Last Admin Trade Name Freq PRN Reason Stop Dose Admin Acetaminophen 650 mg 10/26/23 12:00 10/27/23 05:26 Acetaminophen 325 Mg Tablet PO 650 mg Q6HR [facility] Administration Acetaminophen 500 mg 10/27/23 11:08 Acetaminophen 500 Mg Tablet PO Q6H PRN Pain Rated 1-3 Dextrose 12.5 gm 10/25/23 19:27 Dextrose 50% 25 Gm/50 Ml Syringe IV PUSH PRN PRN Hypoglycemia Protocol Enoxaparin Sodium 40 mg 10/27/23 09:00 10/27/23 09:51 Enoxaparin 40 Mg/0.4 Ml Syringe SUB-Q 40 mg DAILY [facility] Administration Glucagon 1 mg 10/25/23 19:27 Glucagon For Inj 1 Mg Vial IM PRN PRN Hypoglycemia Protocol Glucose 15 gm 10/25/23 19:27 Glucose Oral Gel 15 Gm Of Glucse In 37.5 Gm Tube PO PRN PRN Hypoglycemia Protocol Piperacillin/Tazobactam/Dextrose 3.375 gm in 50 mls @ 100 mls/hr 10/25/23 19:00 10/27/23 05:56 Zosyn 3.375 Gm/Ns 50 Ml IVPB Infused Q6HR [facility] Infusion Dextrose 1,000 mls @ 100 mls/hr 10/25/23 19:27 Dextrose 5% 1,000 Ml IVPB PRN PRN Hypoglycemia Protocol Ibuprofen 800 mg in 200 mls @ 400 mls/hr
--- NOTE | 2023-10-27 11:38 | PM.IMPN ---
Progress Note: A&P Assessment and Plan (1) Sepsis: Qualifiers: Sepsis acute organ dysfunction status: unspecified Sepsis type: sepsis due to unspecified organism Qualified Code(s): A41.9 - Sepsis, unspecified organism Code(s): A41.9 - Sepsis, unspecified organism Status: Acute Assessment and Plan: Patient with sepsis present on admission with tachycardia, leukocytosis and fever. Sepsis due to sigmoid diverticulitis with micro perforation. Patient started on Zosyn. He appears comfortable. Pain is still significant. White count trending downward. Fever curve is improved Continue current IV antibiotics (2) Diverticulitis of colon with perforation: Code(s): K57.20 - Diverticulitis of large intestine with perforation and abscess without bleeding Status: Acute Assessment and Plan: CT of the abdomen and pelvis showing sigmoid diverticulitis with micro perforation. Blood cultures no growth to date. As above. Continue to follow. (3) Insulin dependent type 2 diabetes mellitus: Code(s): E11.9 - Type 2 diabetes mellitus without complications; Z79.4 - snf (current) use of insulin Status: Chronic Assessment and Plan: The patient's blood glucose was reviewed on 10/26 Glucose remains well controlled. Continue AccuCheks covering with sliding scale. Hypoglycemia protocol available as needed. Continue to monitor (4) Hypertension: Qualifiers: Hypertension type: primary hypertension Qualified Code(s): I10 - Essential (primary) hypertension Code(s): I10 - Essential (primary) hypertension Status: Chronic Assessment and Plan: Patient's blood pressure was reviewed on 10/26 Blood pressure remains well controlled. Will continue to monitor Plan Diet -NPO Code status -full DVT prophylax -Lovenox Subjective Date/time seen: 10/27/23 11:38 Interval history: 53yo male wit NICMP, hx of cerebral aneurysm s/p clip, DM and HTN here for abdominal pain. Patient had increasing abdominal pain overnight with spasm after a bowel movement. Has had bowel movements since that time as diarrhea but no further spasms. No melena or hematochezia. He is up walking to the bathroom. Exam Narrative: Tm 100.9 98.4 125/80 95 20 93% ra Gen - NARD Chest - CTA bilaterally, nml RR CV - RRR S1/S2 Abd - Soft, LLQ tenderness with guarding. +BS Ext - No pedal edema Psych - Nml mood and affect Skin - Warm and dry Objective Data Vital Signs Vital Signs: Vital Signs - 24 hr 10/26/23 12:33 10/26/23 12:00 10/26/23 16:11 Temperature 100.9 F H 98.7 F Pulse Rate 108 H 118 H 101 H Respiratory Rate 16 18 Blood Pressure 119/64 110/66 Pulse Oximetry 92 91 Oxygen Delivery 10/26/23 21:13 10/26/23 20:00 10/27/23 00:00 Temperature 97.1 F L 99.1 F Pulse Rate 86 108 H Respiratory Rate 16 18 Blood Pressure 125/68 119/61 Pulse Oximetry 95 91 Oxygen Delivery Room Air 10/27/23 04:52 10/27/23 09:51 Temperature 98.4 F Pulse Rate 95 Respiratory Rate 20 Blood Pressure 125/80 Pulse Oximetry 93 Oxygen Delivery Room Air Intake/Output Intake/Output: Intake & Output 10/24/23 10/25/23 10/26/23 10/27/23 23:59 23:59 23:59 23:59 Intake Total 20990 1250 Balance 20990 1250 Meds/Results Medications: Active Medications Generic Name Dose Route Start Last Admin Trade Name Freq PRN Reason Stop Dose Admin Acetaminophen 650 mg 10/26/23 12:00 10/27/23 05:26 Acetaminophen 325 Mg Tablet PO 650 mg Q6HR [facility] Administration Acetaminophen 500 mg 10/27/23 11:08 Acetaminophen 500 Mg Tablet PO Q6H PRN Pain Rated 1-3 Dextrose 12.5 gm 10/25/23 19:27 Dextrose 50% 25 Gm/50 Ml Syringe IV PUSH PRN PRN Hypoglycemia Protocol Enoxaparin Sodium 40 mg 10/27/23 09:00 10/27/23 09:51 Enoxaparin 40 Mg/0.4 Ml Syringe SUB-Q 40 mg DAILY [facility] Administrat
[2023-10-27 14:26] VITALS: BP 117/79; PULSE 91; RESP 16; TEMP 36.7; O2SAT 93
[2023-10-27 19:53] VITALS: BP 125/83; PULSE 92; RESP 16; TEMP 36.6; O2SAT 94
[2023-10-27] MEDS: INSULIN GLARGINE (*BKC) 100 UNITS/ML 8 UNITS SUB-Q (20:12)
[2023-10-27 21:11] LABS: Glucose Point of Care 159 mg/dl (65-105)
[2023-10-28] MEDS: ACETAMINOPHEN 325 MG TABLET 650 MG PO ×3 (00:26→23:24)
[2023-10-28] MEDS: PIPERACILLN/TAZ 3.375GM/NS50ML 3.375 GM/50 ML BAG IVPB ×5 (00:26→23:24)
[2023-10-28 04:24] VITALS: BP 137/83; PULSE 81; RESP 16; TEMP 36.2; O2SAT 96
[2023-10-28 06:12] LABS: Hematocrit 40.6 % (42.0-52.0); Hemoglobin 13.2 g/dL (14.0-18.0); Mean Corpuscular HGB Conc 32.5 g/dl (32-36); Mean Corpuscular Hemoglobin 28.8 pg (26-34); Mean Corpuscular Volume 88.5 fl (80-100); Mean Platelet Volume 9.3 fl (7.4-10.4); Platelet Count Result 197 k/mm3 (150-375); Red Blood Count 4.59 M/mm3 (4.6-6.20); Red Cell Distribution Width 13.3 % (11.5-14.5); White Blood Count 7.1 K/mm3 (4.5-10.0)
[2023-10-28 06:22] LABS: Anion Gap 6 mmol/L (4-12); Blood Urea Nitrogen 9 mg/dL (9-20); Calcium 8.7 mg/dL (8.4-10.2); Carbon Dioxide 22 mmol/L (22-30); Chloride 105 mmol/L (98-107); Estimated CRCL calculation 104 ml/min; Estimated Glomerular Filt Rate > 60; Glucose 117 mg/dL (65-110); Potassium 3.8 mmol/L (3.4-5.0); Sodium 133 mmol/L (137-145)
--- NOTE | 2023-10-28 08:13 | PM.PNGS ---
Progress Note: A&P Assessment and Plan (1) Diverticulitis of colon with perforation: Code(s): K57.20 - Diverticulitis of large intestine with perforation and abscess without bleeding Status: Acute Assessment and Plan: Continues to improve. White blood cell count now normal. Will advance to low-fiber diet. Continue IV antibiotics today and have dietitian discuss low-fiber diet with him. If continues to improve, can go home tomorrow. I discussed this plan with the patient who is in agreement. I will be seeing him in 2 weeks after discharge. He will go home on some oral antibiotics. 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 Status: Chronic Subjective Subjective Date/Time Seen: 10/28/23 08:13 Patient reports: no new complaints, pain is less (No pain medication at all since night before last.), tolerating liquids well, bowel movement and afebrile Review of Systems Review of Systems: All systems reviewed & are unremarkable except as noted in HPI and below (HPI) Exam Const: General: comfortable and no acute distress Orientation/consciousness: patient oriented x3 GI: Inspection: normal to inspection, non-distended and obesity GI Palp: Yes Firmness to palpation present (GI), Yes Tenderness to palpation present (GI) (Left lower quadrant tenderness nearly gone. No tenderness elsewhere), No Guarding due to palpation present (GI) and No Rebound tenderness present Auscultation: normal bowel sounds Neuro: General: patient oriented x3 and no focal motor deficits Extrem: General: no calf tenderness and no edema Psych: Affect: normal affect Insight: Good insight present (Psych) Judgement: Good judgement present (Psych) Objective Data Vital Signs Vital Signs: Vital Signs - 24 hr 10/27/23 09:51 10/27/23 14:26 10/27/23 19:53 Temperature 36.7 C 36.6 C Pulse Rate 91 92 Respiratory Rate 16 16 Blood Pressure 117/79 125/83 Pulse Oximetry 93 94 Oxygen Delivery Room Air 10/27/23 20:00 10/28/23 04:24 Temperature 36.2 C L Pulse Rate 81 Respiratory Rate 16 Blood Pressure 137/83 Pulse Oximetry 96 Oxygen Delivery Room Air Intake/Output Intake/Output: Intake & Output 10/25/23 10/26/23 10/27/23 10/28/23 23:59 23:59 23:59 23:59 Intake Total 2099 2059 2596.7 200 Balance 2099 2059 2596.7 200 Meds/Results Medications: Active Medications Generic Name Dose Route Start Last Admin Trade Name Freq PRN Reason Stop Dose Admin Acetaminophen 650 mg 10/26/23 12:00 10/28/23 06:27 Acetaminophen 325 Mg Tablet PO 650 mg Q6HR [facility] Administration Acetaminophen 500 mg 10/27/23 11:08 Acetaminophen 500 Mg Tablet PO Q6H PRN Pain Rated 1-3 Dextrose 12.5 gm 10/25/23 19:27 Dextrose 50% 25 Gm/50 Ml Syringe IV PUSH PRN PRN Hypoglycemia Protocol Enoxaparin Sodium 40 mg 10/27/23 09:00 10/27/23 09:51 Enoxaparin 40 Mg/0.4 Ml Syringe SUB-Q 40 mg DAILY [facility] Administration Glucagon 1 mg 10/25/23 19:27 Glucagon For Inj 1 Mg Vial IM PRN PRN Hypoglycemia Protocol Glucose 15 gm 10/25/23 19:27 Glucose Oral Gel 15 Gm Of Glucse In 37.5 Gm Tube PO PRN PRN Hypoglycemia Protocol Piperacillin/Tazobactam/Dextrose 3.375 gm in 50 mls @ 100 mls/hr 10/25/23 19:00 10/28/23 06:57 Zosyn 3.375 Gm/Ns 50 Ml IVPB Infused Q6HR [facility] Infusion Dextrose 1,000 mls @ 100 mls/hr 10/25/23 19:27 Dextrose 5% 1,000 Ml IVPB PRN PRN Hypoglycemia Protocol Ibuprofen 800 mg in 200 mls @ 400 mls/hr 10/26/23 09:22 Caldolor 800 Mg/200 Ml IVPB Q6H PRN Breakthrough Pain Rated 1-3 or NPO Insulin Glargine 8 units 10/26/23 21:00 10/27/23 20:12 Insulin Glargine (*Bkc) 100 Units/Ml SUB-Q 8 units HS [facility] Administration Morphine Sulfate 2 mg 10/26/23 09:22 Morphine S
[2023-10-28 08:39] LABS: Glucose Point of Care 117 mg/dl (65-105)
[2023-10-28] MEDS: ENOXAPARIN 40 MG/0.4 ML SYRINGE SUB-Q (08:58)
[2023-10-28] MEDS: PANTOPRAZOLE SODIUM IV 40 MG VIAL IV PUSH (08:58)
[2023-10-28] MEDS: POTASSIUM CHLORIDE 20 MEQ ER TABLET PO ×2 (08:58→17:30)
--- NOTE | 2023-10-28 11:15 | PCDIET ---
Physician consult for Low Fiber diet instruction. See Nutritional Teaching Intervention. Thank you for the consult.
[2023-10-28 12:02] LABS: Glucose Point of Care 178 mg/dl (65-105)
--- NOTE | 2023-10-28 15:09 | PM.IMPN ---
Progress Note: A&P Assessment and Plan (1) Sepsis: Qualifiers: Sepsis acute organ dysfunction status: unspecified Sepsis type: sepsis due to unspecified organism Qualified Code(s): A41.9 - Sepsis, unspecified organism Code(s): A41.9 - Sepsis, unspecified organism Status: Acute Assessment and Plan: Patient with sepsis present on admission with tachycardia, leukocytosis and fever. Sepsis due to sigmoid diverticulitis with micro perforation. Patient started on Zosyn. He appears comfortable. Painhas resolved. White count normal Continue current IV antibiotics (2) Diverticulitis of colon with perforation: Code(s): K57.20 - Diverticulitis of large intestine with perforation and abscess without bleeding Status: Acute Assessment and Plan: CT of the abdomen and pelvis showing sigmoid diverticulitis with micro perforation. Blood cultures no growth to date. As above. Continue to follow. (3) Insulin dependent type 2 diabetes mellitus: Code(s): E11.9 - Type 2 diabetes mellitus without complications; Z79.4 - [facility] (current) use of insulin Status: Chronic Assessment and Plan: The patient's blood glucose was reviewed on 10/27 Glucose remains well controlled. Continue AccuCheks covering with sliding scale. Hypoglycemia protocol available as needed. Continue to monitor (4) Hypertension: Qualifiers: Hypertension type: primary hypertension Qualified Code(s): I10 - Essential (primary) hypertension Code(s): I10 - Essential (primary) hypertension Status: Chronic Assessment and Plan: Patient's blood pressure was reviewed on 10/27 Blood pressure remains well controlled. Will continue to monitor Plan Diet - low fiber Code status -full DVT prophylax -Lovenox Subjective Date/time seen: 10/28/23 15:09 Interval history: 53yo male wit NICMP, hx of cerebral aneurysm s/p clip, DM and HTN here for abdominal pain. Feels well today. Tolerating current diet. No abdominal pain. No CP, SOB. No n/v. Still with diarrhea but no melana or hematochezia. Exam Narrative: AF 97.2 137/83 81 16 96% ra Gen - NARD sitting up in the chair Chest - CTA bilaterally, nml RR CV - RRR S1/S2 Abd - Soft, minimal LLQ tenderness Ext - No pedal edema Psych - Nml mood and affect Skin - Warm and dry Objective Data Vital Signs Vital Signs: Vital Signs - 24 hr 10/27/23 19:53 10/27/23 20:00 10/28/23 04:24 Temperature 97.9 F 97.2 F L Pulse Rate 92 81 Respiratory Rate 16 16 Blood Pressure 125/83 137/83 Pulse Oximetry 94 96 Oxygen Delivery Room Air 10/28/23 08:58 Temperature Pulse Rate Respiratory Rate Blood Pressure Pulse Oximetry Oxygen Delivery Room Air Intake/Output Intake/Output: Intake & Output 10/25/23 10/26/23 10/27/23 10/28/23 23:59 23:59 23:59 23:59 Intake Total 2099 2059 2596.7 730 Balance 2099 2059 2596.7 730 Meds/Results Medications: Active Medications Generic Name Dose Route Start Last Admin Trade Name Freq PRN Reason Stop Dose Admin Acetaminophen 650 mg 10/26/23 12:00 10/28/23 12:44 Acetaminophen 325 Mg Tablet PO Not Given Q6HR [facility] Acetaminophen 500 mg 10/27/23 11:08 Acetaminophen 500 Mg Tablet PO Q6H PRN Pain Rated 1-3 Dextrose 12.5 gm 10/25/23 19:27 Dextrose 50% 25 Gm/50 Ml Syringe IV PUSH PRN PRN Hypoglycemia Protocol Enoxaparin Sodium 40 mg 10/27/23 09:00 10/28/23 08:58 Enoxaparin 40 Mg/0.4 Ml Syringe SUB-Q 40 mg DAILY [facility] Administration Glucagon 1 mg 10/25/23 19:27 Glucagon For Inj 1 Mg Vial IM PRN PRN Hypoglycemia Protocol Glucose 15 gm 10/25/23 19:27 Glucose Oral Gel 15 Gm Of Glucse In 37.5 Gm Tube PO PRN PRN Hypoglycemia Protocol Piperacillin/Tazobactam/Dextrose 3.375 gm in 50 mls @ 100 mls/hr 10/25/23 19:00 10/28/23 13:14 Zosyn 3.375 Gm/Ns 50
[2023-10-28 15:32] VITALS: BP 134/9; PULSE 87; RESP 18; TEMP 36.4; O2SAT 97
[2023-10-28 17:13] LABS: Glucose Point of Care 142 mg/dl (65-105)
[2023-10-28] MEDS: INSULIN GLARGINE (*BKC) 100 UNITS/ML 8 UNITS SUB-Q (21:53)
[2023-10-28 22:00] VITALS: BP 130/88; PULSE 78; RESP 18; TEMP 36.2; O2SAT 96
[2023-10-29 05:30] VITALS: BP 125/86; PULSE 65; RESP 21; TEMP 36.2; O2SAT 100
[2023-10-29 05:43] LABS: Hematocrit 42.2 % (42.0-52.0); Hemoglobin 13.8 g/dL (14.0-18.0); Mean Corpuscular HGB Conc 32.7 g/dl (32-36); Mean Corpuscular Hemoglobin 28.8 pg (26-34); Mean Corpuscular Volume 88.1 fl (80-100); Mean Platelet Volume 8.8 fl (7.4-10.4); Platelet Count Result 232 k/mm3 (150-375); Red Blood Count 4.79 M/mm3 (4.6-6.20); Red Cell Distribution Width 13.2 % (11.5-14.5); White Blood Count 4.8 K/mm3 (4.5-10.0)
[2023-10-29 05:57] LABS: Anion Gap 7 mmol/L (4-12); Blood Urea Nitrogen 12 mg/dL (9-20); Calcium 9.2 mg/dL (8.4-10.2); Carbon Dioxide 23 mmol/L (22-30); Chloride 106 mmol/L (98-107); Estimated CRCL calculation 104 ml/min; Estimated Glomerular Filt Rate > 60; Glucose 127 mg/dL (65-110); Potassium 3.7 mmol/L (3.4-5.0); Sodium 136 mmol/L (137-145)
[2023-10-29] MEDS: ACETAMINOPHEN 325 MG TABLET 650 MG PO (06:06)
[2023-10-29] MEDS: PIPERACILLN/TAZ 3.375GM/NS50ML 3.375 GM/50 ML BAG IVPB (06:06)
--- NOTE | 2023-10-29 07:13 | PM.PNGS ---
Progress Note: A&P Assessment and Plan (1) Diverticulitis of colon with perforation: Code(s): K57.20 - Diverticulitis of large intestine with perforation and abscess without bleeding Status: Acute Assessment and Plan: No pain whatsoever. Tolerating low-fiber diet. Recommend discharge today on low-fiber diet and oral antibiotics. Will write prescription for Augmentin. He will need to see me in 2 weeks for follow-up. Subjective Subjective Date/Time Seen: 10/29/23 07:13 Patient reports: pain is less (No pain at all.), tolerating a regular diet, diarrhea (Had a few loose stools but they seem to be getting more formed.) and afebrile Review of Systems Review of Systems: All systems reviewed & are unremarkable except as noted in HPI and below (HPI) Exam Const: General: cooperative, comfortable, no acute distress, alert, awake and well groomed Orientation/consciousness: patient oriented x3 GI: Inspection: normal to inspection and obesity GI Palp: Yes Soft to palpation, No Tenderness to palpation present (GI), No Guarding due to palpation present (GI), No Hernia present, No Palpable mass present and No Rebound tenderness present Auscultation: normal bowel sounds Neuro: General: patient oriented x3 and no focal motor deficits Extrem: General: no calf tenderness and no edema Psych: Affect: normal affect Insight: Good insight present (Psych) Judgement: Good judgement present (Psych) Objective Data Vital Signs Vital Signs: Vital Signs - 24 hr 10/28/23 08:58 10/28/23 15:32 10/28/23 20:00 Temperature 36.4 C L Pulse Rate 87 Respiratory Rate 18 Blood Pressure 134/9 L Pulse Oximetry 97 Oxygen Delivery Room Air Room Air 10/28/23 22:00 10/29/23 05:30 Temperature 36.2 C L 36.2 C L Pulse Rate 78 65 Respiratory Rate 18 21 H Blood Pressure 130/88 125/86 Pulse Oximetry 96 100 Oxygen Delivery Intake/Output Intake/Output: Intake & Output 10/26/23 10/27/23 10/28/23 10/29/23 23:59 23:59 23:59 23:59 Intake Total 2059 2596.7 1860 550 Balance 2059 2596.7 1860 550 Meds/Results Medications: Active Medications Generic Name Dose Route Start Last Admin Trade Name Freq PRN Reason Stop Dose Admin Acetaminophen 650 mg 10/26/23 12:00 10/29/23 06:06 Acetaminophen 325 Mg Tablet PO 650 mg Q6HR MILLIE Administration Acetaminophen 500 mg 10/27/23 11:08 Acetaminophen 500 Mg Tablet PO Q6H PRN Pain Rated 1-3 Dextrose 12.5 gm 10/25/23 19:27 Dextrose 50% 25 Gm/50 Ml Syringe IV PUSH PRN PRN Hypoglycemia Protocol Enoxaparin Sodium 40 mg 10/27/23 09:00 10/28/23 08:58 Enoxaparin 40 Mg/0.4 Ml Syringe SUB-Q 40 mg DAILY MILLIE Administration Glucagon 1 mg 10/25/23 19:27 Glucagon For Inj 1 Mg Vial IM PRN PRN Hypoglycemia Protocol Glucose 15 gm 10/25/23 19:27 Glucose Oral Gel 15 Gm Of Glucse In 37.5 Gm Tube PO PRN PRN Hypoglycemia Protocol Piperacillin/Tazobactam/Dextrose 3.375 gm in 50 mls @ 100 mls/hr 10/25/23 19:00 10/29/23 06:06 Zosyn 3.375 Gm/Ns 50 Ml IVPB 100 mls/hr Q6HR MILLIE Administration Dextrose 1,000 mls @ 100 mls/hr 10/25/23 19:27 Dextrose 5% 1,000 Ml IVPB PRN PRN Hypoglycemia Protocol Ibuprofen 800 mg in 200 mls @ 400 mls/hr 10/26/23 09:22 Caldolor 800 Mg/200 Ml IVPB Q6H PRN Breakthrough Pain Rated 1-3 or NPO Insulin Glargine 8 units 10/26/23 21:00 10/28/23 21:53 Insulin Glargine (*Bkc) 100 Units/Ml SUB-Q 8 units HS MILLIE Administration Morphine Sulfate 2 mg 10/26/23 09:22 Morphine Sulfate (*Crx) 2 Mg/Ml Inj IV PUSH Q2H PRN Breakthrough Pain Rated 4-6 or NPO Morphine Sulfate 4 mg 10/26/23 09:22 10/26/23 21:16 Morphine Sulfate (*Crx) 4 Mg/Ml Inj IV PUSH 4 mg Q2H PRN Administration Breakthrough Pain Rated 7-10 or NPO Naloxone HCl 0.1 mg 10/26/23 09:22 Naloxone Hcl 0.4 Mg/Ml Vial IV PUSH Q
[2023-10-29 07:36] LABS: Glucose Point of Care 131 mg/dl (65-105)
[2023-10-29 08:33] LABS: Glucose Point of Care 125 mg/dl (65-105)
[2023-10-29] MEDS: PANTOPRAZOLE SODIUM IV 40 MG VIAL IV PUSH (08:48)
[2023-10-29] MEDS: POTASSIUM CHLORIDE 20 MEQ ER TABLET PO (08:48)
[2023-10-29 12:09] LABS: Glucose Point of Care 152 mg/dl (65-105)
--- NOTE | 2023-10-29 12:12 | PM.DS ---
DS: Admitting Diagnosis Discharge Date 10/29/23 Admitting Diagnosis Abdominal pain DS: Discharge Diagnosis Discharge Diagnosis (1) Sepsis: Qualifiers: Sepsis acute organ dysfunction status: unspecified Sepsis type: sepsis due to unspecified organism Qualified Code(s): A41.9 - Sepsis, unspecified organism Code(s): A41.9 - Sepsis, unspecified organism Status: Acute (2) Diverticulitis of colon with perforation: Code(s): K57.20 - Diverticulitis of large intestine with perforation and abscess without bleeding Status: Acute (3) Insulin dependent type 2 diabetes mellitus: Code(s): E11.9 - Type 2 diabetes mellitus without complications; Z79.4 - nursing home (current) use of insulin Status: Chronic (4) Hypertension: Qualifiers: Hypertension type: primary hypertension Qualified Code(s): I10 - Essential (primary) hypertension Code(s): I10 - Essential (primary) hypertension Status: Chronic DS: Summary Hospital Course Reason for hospitalization: 53yo male wit NICMP, hx of cerebral aneurysm s/p clip, DM and HTN here for abdominal pain. Please see H&P for details. Hospital Course: Patient with sepsis present on admission with tachycardia, leukocytosis and fever.? CT of the abdomen and pelvis showing sigmoid diverticulitis with micro perforation. Patient started on Zosyn. Sepsis due to sigmoid diverticulitis. Blood cultures no growth to date. General surgery consulted and appreciate their input. His pain resolved.? White count normalized. He overall did well and was able to be discharged home on 10/29/23 Status at Discharge Cognitive/behavioral status at discharge: stable Time Spent with Patient Time attestation: Total time spent providing and/or coordinating discharge services: 25 mintues Time spent: Less than 30 minutes Exam Narrative: AF 97.2 125/86 65 21 100% ra Gen - NARD sitting up in the chair Chest - CTA bilaterally, nml RR CV - RRR S1/S2 Abd - Soft, NT/ND Ext - No pedal edema Psych - Nml mood and affect Skin - Warm and dry DS: Data Data Completed and Pending Labs on day of discharge: Labs from last 24 hours 10/29/23 10/29/23 10/29/23 12:06 08:30 05:25 WBC 4.8 RBC 4.79 Hgb 13.8 L Hct 42.2 MCV 88.1 MCH 28.8 MCHC 32.7 RDW 13.2 Plt Count 232 MPV 8.8 Sodium 136 L Potassium 3.7 Chloride 106 Carbon Dioxide 23 Anion Gap 7 BUN 12 Creatinine 0.90 Estim Creat Clear Calc 104 Estimated GFR > 60 Glucose 127 H POC Capillary Glucose 152 H 125 H Calcium 9.2 10/28/23 10/28/23 21:21 17:01 WBC RBC Hgb Hct MCV MCH MCHC RDW Plt Count MPV Sodium Potassium Chloride Carbon Dioxide Anion Gap BUN Creatinine Estim Creat Clear Calc Estimated GFR Glucose POC Capillary Glucose 131 H 142 H Calcium Preliminary micro results at discharge 10/25/23 14:12 Blood Culture - Preliminary Blood 10/25/23 14:10 Blood Culture - Preliminary Blood Discharge Plan Discharge Attending physician on discharge: Easton Naik Consulting providers: Jimmie Escobar; Karina Lindo Discharging Clinician: Easton Naik Anticipated Discharge Date/Time: 10/29/23 12:18 Patient Disposition: Home, Self-Care Activity: as tolerated Diet: low fiber Discharge Instructions: Activity as tolerated Stay on low-fiber diet for 2 weeks. If no recurrent abdominal pain, can resume normal diabetic diet. Call Dr. Jernigan office after discharge to make follow-up appointment. Take antibiotic prescription until they are gone. May take [id number] Imodium as needed for loose stools. Call Dr. Escobar if diarrhea occurs and worsens despite Imodium. For your diabetes: Please try to adhere to a diabetic diet Please check glucose before meals and before bed. Record and bring into your d
== END 2023-10-29 12:50 | disposition home or self-care (01) | DRG 872 ==
LOC: ANHED 14:09 → ANH3MED 15:17
PROVIDERS: Physician Assistant; Student in an Organized Health Care Education/Training Program; Surgery; Admitting Provider Hospitalist; Emergency Provider Physician Assistant; Visit Provider Internal Medicine
DX: A41.9 Sepsis, unspecified organism (principal); K57.20 Diverticulitis of large intestine with perforation and abscess without bleeding; I42.0 Dilated cardiomyopathy; I11.0 Hypertensive heart disease with heart failure; I50.9 Heart failure, unspecified; E11.9 Type 2 diabetes mellitus without complications; Z20.822 Contact with and (suspected) exposure to COVID-19; Z87.891 Personal history of nicotine dependence; Z79.4 Long term (current) use of insulin
CPT/HCPCS: 36415; 74177; 80048; 80053; 81001; 82948; 83605; 83690; 83735; 85025; 85027; 87040; 87637; 96361; 96365; 96374; 96375; 96376; 99285; A9270; C9113; G0378; J1170; J1650; J1815; J2270; J2405; J2543; J3480; J7030; Q9967

== ENCOUNTER 2024-09-01 00:50 | Day surgery (SDC) | payer BC, SELFPAY ==
[2024-08-24 11:03] VITALS: BMI 34.4
[2024-09-01] MEDS: LACTATED RINGERS 1,000 ML 150 ML IV CONT (06:43)
[2024-09-01 06:44] VITALS: BP 129/93; PULSE 94; RESP 16; TEMP 36.3; O2SAT 94
--- NOTE | 2024-09-01 06:46 | SUR.PREOP ---
Patient's glucose monitor reads 170 during preop.
--- NOTE | 2024-09-01 07:04 | WPDANESEPPF ---
Anes - Initial Pre Proc Eval Procedure: Operation Date: 09/01/24 07:45 Proposed Procedures p Screening Colonoscopy - Jens Knox MD Date/Time: 09/01/24 07:04 Surgeon: Jens Knox MD Pre Op Diagnosis: screening Patient Data Age: 54 Gender: M Height: 1.78 m Weight: 107.7 kg Last Vital Signs Temp 36.3 C L 09/01/24 06:44 Pulse 94 09/01/24 06:44 Resp 16 09/01/24 06:44 BP 129/93 H 09/01/24 06:44 Pulse Ox 94 09/01/24 06:44 O2 Del Method Room Air 09/01/24 06:44 Allergies Allergy/AdvReac Type Severity Reaction Status Date / Time No Known Allergies Allergy Verified 09/01/24 06:37 Home Medications ?Medication ?Instructions ?Recorded ?Confirmed ?Type amlodipine 5 mg tablet 5 mg PO DAILY 05/04/21 09/01/24 History rosuvastatin 40 mg tablet 40 mg PO DAILY 05/04/21 09/01/24 History blood sugar diagnostic (OneTouch #1 pk 05/09/21 11/06/23 Rx Verio test strips) blood-glucose meter (OneTouch #1 pkg 05/09/21 11/06/23 Rx Verio Flex Meter) insulin syringe-needle U-100 1/2 #1 pkg 05/09/21 11/06/23 Rx mL 31 gauge x 15/64 (BD Veo Insulin Syringe Ultra-Fine) lancets 30 gauge (OneTouch Delica #1 pkg 05/09/21 11/06/23 Rx Plus Lancet) pantoprazole 40 mg tablet,delayed 40 mg PO QAM #30 tabs 05/09/21 09/01/24 Rx release (Protonix) pen needle, diabetic 32 gauge x #1 pkg 05/09/21 11/06/23 Rx 5/32 (BD Ultra-Fine Maisha Pen Needle) furosemide 20 mg tablet 20 mg PO DAILY 10/25/23 08/24/24 History insulin lispro 100 unit/mL 2 unit subcut AC 10/25/23 08/24/24 History subcutaneous pen (Humalog KwikPen (U-100) Insulin) lisinopril 20 mg tablet 20 mg PO DAILY 10/25/23 09/01/24 History metformin 500 mg tablet,extended 1,000 mg PO DAILY 10/25/23 09/01/24 History release 24 hr Patient hx anesthesia problems: none Family hx anesthesia problems: none Results Review: All pre-operative results and documents have been reviewed as part of the pre-operative evaluation. [facility] Past Medical History Medical History Hyperlipidemia Cerebral aneurysm Nonischemic cardiomyopathy With improved ejection fraction. Insulin dependent type 2 diabetes mellitus Hypertension Surgical History Surgical History History of hernia repair History of cardiac catheterization Normal coronaries. History of craniotomy With coiling of ruptured cerebral aneurysm. Family History Family History Father Patient's father is Hypertension Pancreatic cancer Mother Atrial fibrillation Hypertension Social History Social History Social History: Surrogate medical decision maker: Mahogany Dumont, sibling. Code status: Full code. Smoking packs per day: 0.5 Smoking cigarettes per day: 10.0 Years smoked: 18 Smoking pack-years: 9.00 Smoking status: Former smoker Alcohol intake: current Drinks per week: 15 Substance use: never Substance use type: does not use Do You Feel Safe in your Home?: Yes Lack of Transportation: No Lack of Food: Never True Current Housing: Decline to Answer Concerned About Future Housing: Decline to Answer Difficulty Paying Gas/Electric Bills: Decline to Answer Difficulty Paying for Meds: Decline to Answer Currently Unemployed: Decline to Answer Education: Decline to Answer Difficulty w/ Childcare or Family Care: Decline to Answer Living arrangements: with family Additional living arrangements comments: with mother Spiritual care concerns: No Anes - Eval Final PreProcedure Day of Procedure 09/01/24 07:04 Patient weight: obese Heart: regular rate and rhythm Lungs: clear to auscultation Airway: Mallampati scale class II Neurological: alert and oriented Last oral intake: >/= 8 hours ASA classification: III Emergent: no Anesthetic plan: proceed Anesthesia type and monitoring: general GIVS and standard monitoring Results Review: All pre-operative results and documents have been reviewed as part of the pre-operative evaluation. Informed Consent: The patient's anesthetic plan and its attendant risks and benefits were discussed with the patient/family/POA. Questions were solicited and answers provided to the satisfaction of the patient/family/POA.
--- NOTE | 2024-09-01 07:41 | PM.HPGS ---
History of Present Illness History of Present Illness Consent: Risks, benefits, and alternatives have been discussed and questions answered. Patient agrees to proceed with procedure. Chief complaint: screening Narrative: Gera Dumont is a 54 year old male here for first screening colonoscopy Review of Systems Review of Systems: All systems reviewed & are unremarkable except as noted in HPI and below PMFSH Past Medical History Medical History (Updated 09/01/24 @ 07:42 by Jens Knox MD) Colon cancer screening Hyperlipidemia Cerebral aneurysm Nonischemic cardiomyopathy With improved ejection fraction. Insulin dependent type 2 diabetes mellitus Hypertension Surgical History Surgical History History of hernia repair History of cardiac catheterization Normal coronaries. History of craniotomy With coiling of ruptured cerebral aneurysm. Family History Family History Father Patient's father is Hypertension Pancreatic cancer Mother Atrial fibrillation Hypertension Social History Social History Social History: Surrogate medical decision maker: Mahogany Dumont, sibling. Code status: Full code. Smoking packs per day: 0.5 Smoking cigarettes per day: 10.0 Years smoked: 18 Smoking pack-years: 9.00 Smoking status: Former smoker Alcohol intake: current Drinks per week: 15 Substance use: never Substance use type: does not use Do You Feel Safe in your Home?: Yes Lack of Transportation: No Lack of Food: Never True Current Housing: Decline to Answer Concerned About Future Housing: Decline to Answer Difficulty Paying Gas/Electric Bills: Decline to Answer Difficulty Paying for Meds: Decline to Answer Currently Unemployed: Decline to Answer Education: Decline to Answer Difficulty w/ Childcare or Family Care: Decline to Answer Living arrangements: with family Additional living arrangements comments: with mother Spiritual care concerns: No Meds Home Medications and Allergies Home Medications ?Medication ?Instructions ?Recorded ?Confirmed ?Type amlodipine 5 mg tablet 5 mg PO DAILY 05/04/21 09/01/24 History rosuvastatin 40 mg tablet 40 mg PO DAILY 05/04/21 09/01/24 History blood sugar diagnostic (OneTouch #1 pkg 05/09/21 11/06/23 Rx Verio test strips) blood-glucose meter (OneTouch #1 pkg 05/09/21 11/06/23 Rx Verio Flex Meter) insulin syringe-needle U-100 1/2 #1 pkg 05/09/21 11/06/23 Rx mL 31 gauge x 15/64 (BD Veo Insulin Syringe Ultra-Fine) lancets 30 gauge (AlTouch Delica #1 pk 05/09/21 11/06/23 Rx Plus Lancet) pantoprazole 40 mg tablet,delayed 40 mg PO QAM #30 tabs 05/09/21 09/01/24 Rx release (Protonix) pen needle, diabetic 32 gauge x #1 pkg 05/09/21 11/06/23 Rx 5/32 (BD Ultra-Fine Maisha Pen Needle) furosemide 20 mg tablet 20 mg PO DAILY 10/25/23 08/24/24 History insulin lispro 100 unit/mL 2 unit subcut AC 10/25/23 08/24/24 History subcutaneous pen (Humalog KwikPen (U-100) Insulin) lisinopril 20 mg tablet 20 mg PO DAILY 10/25/23 09/01/24 History metformin 500 mg tablet,extended 1,000 mg PO DAILY 10/25/23 09/01/24 History release 24 hr Allergies Allergy/AdvReac Type Severity Reaction Status Date / Time No Known Allergies Allergy Verified 09/01/24 06:37 Vital Signs Vital Signs - 24 hr 09/01/24 06:44 Temperature 97.3 F L Pulse Rate 94 Respiratory Rate 16 Blood Pressure 129/93 H Pulse Oximetry 94 Oxygen Delivery Room Air Exam Const: General: comfortable and no acute distress HENMT: Face/Nose/Sinus: Normal nares present Eyes: General: appearance normal, both eyes and all related structures Neck: Neck: no JVD Resp: Auscultation: clear to auscultation bilaterally Cardio: Rate: regular rate Rhythm: regular rhythm GI: Inspection: non-distended GI Palp: Yes Soft to palpation Skin: General skin exam: normal color Neuro: General: gait normal Speech: normal speech Extrem: General: normal to inspection Psych: Mental Status: mental status grossly normal Assessment and Plan Assessment and plan (1) Colon cancer screening: Code(s): Z12.11 - Encounter for screening for malignant neoplasm of colon Status: Acute Assessment and Plan: colonoscopy
[2024-09-01 07:54] VITALS: BP 125/87; PULSE 82; RESP 20; O2SAT 96
[2024-09-01 08:04] VITALS: BP 122/85; PULSE 74; RESP 17; O2SAT 97
--- NOTE | 2024-09-01 08:06 | SUR.PHASEII ---
blood glucose 163 per pt dexcom
[2024-09-01 08:14] VITALS: BP 131/87; PULSE 77; RESP 18; O2SAT 97
== END 2024-09-01 08:21 | disposition home or self-care (01) ==
PROVIDERS: PCP Nurse Practitioner; Visit Provider Internal Medicine Gastroenterology
PROC: 0DJD8ZZ Inspection of Lower Intestinal Tract, Via Natural or Artificial Opening Endoscopic (ICD-10-PCS; CPT 45378; principal; 2024-09-01 07:45)
DX: Z12.11 Encounter for screening for malignant neoplasm of colon (principal); D12.3 Benign neoplasm of transverse colon; D12.5 Benign neoplasm of sigmoid colon; K64.8 Other hemorrhoids; K57.30 Diverticulosis of large intestine without perforation or abscess without bleeding; E78.5 Hyperlipidemia, unspecified; I10 Essential (primary) hypertension; E11.9 Type 2 diabetes mellitus without complications; I42.8 Other cardiomyopathies; E66.9 Obesity, unspecified; Z68.34 Body mass index [BMI] 34.0-34.9, adult; Z79.4 Long term (current) use of insulin; Z79.84 Long term (current) use of oral hypoglycemic drugs; Z98.890 Other specified postprocedural states; Z98.61 Coronary angioplasty status; Z87.891 Personal history of nicotine dependence; Z86.79 Personal history of other diseases of the circulatory system; Z80.0 Family history of malignant neoplasm of digestive organs
CPT/HCPCS: 45385; 88305; J2704; J7120